=== PATIENT | female | born 1985 | race Caucasian/White ===

== ENCOUNTER 2018-09-06 18:35 | Emergency (ER) | payer MEDICAID, SELFPAY ==
[2018-09-06 18:38] VITALS: BP 151/79; PULSE 88; RESP 17; TEMP 36.8; O2SAT 100; BMI 27.3
--- NOTE | 2018-09-06 19:05 | RAD_ITS ---
STUDY: X-RAY - LEFT ANKLE REASON FOR EXAM: Female, 33 years old. Ankle pain with deformity after a fall TECHNIQUE: 2 view(s) of the ankle. COMPARISON: None. FINDINGS: There is anterior dislocation of the tibia in relation to the talus with lateral apical angulation. Longitudinal fracture of the posterior distal tibia with approximately 1.8 cm of displacement. Obliquely oriented fracture of the distal fibula with significant anterior apical angulation and more than one shaft's width displacement. There is also a transverse fracture of the medial malleolus. The visualized subtalar, talonavicular, calcaneocuboid and tarsal articulations are normal. There is diffuse soft tissue swelling. RAD/Ankle 2 Views IMPRESSION: 1. Tibiotalar dislocation with trimalleolar fracture. Electronically Signed: Narinder Benson MD at 19:20 EST , Service support ,
[2018-09-06 19:21] VITALS: BP 160/92; BP 175/87; PULSE 90; PULSE 95; RESP 15; O2SAT 100
[2018-09-06] MEDS: Propofol 200 MG/20 ML Vial IV BOLUS (19:23)
--- NOTE | 2018-09-06 19:30 | RAD_ITS ---
STUDY: X-RAY - LEFT ANKLE REASON FOR EXAM: Female, 33 years old. Status post reduction of ankle dislocation TECHNIQUE: 3 view(s) of the ankle. COMPARISON: None. FINDINGS: There is gross alignment of the tibiotalar articulation (improved since prior study). There is also improved alignment of trimalleolar fracture. Normal visualized talus and calcaneus. The visualized subtalar, talonavicular, calcaneocuboid and tarsal articulations are normal. The soft tissue structures are unremarkable. RAD/Ankle min 3 Views IMPRESSION: There is soft tissue swelling. Electronically Signed: Narinder Benson MD at 19:45 EST , Service support ,
[2018-09-06 19:40] VITALS: BP 138/87; O2SAT 96
[2018-09-06 19:48] VITALS: BP 175/89; PULSE 95; RESP 15; O2SAT 100
--- NOTE | 2018-09-06 20:20 | ED.VISSUMM ---
- ER Visit Summary Date of Service: 09/06/18 Chief Complaint: Left ankle injury History of Present Illness: The patient is a 33 F presenting with left ankle injury. Patient states she slipped on ice and fell injuring her left ankle. She did not hit her head or lose consciousness. She has history of right ankle fracture. She was unable to get up after the fall. Physical Examination: Vitals are stable. Patient is afebrile. Alert no acute distress. HEENT exam is unremarkable. Neck is nontender Lungs are clear and equal bilaterally. Heart is regular rate and rhythm. Extremities left ankle deformity, normal pulse, normal sensation. No tenting of skin Skin is warm and dry. No focal neurologic deficit. Remainder of exam is unremarkable. Emergency Department Course and Treatment: Left ankle x-ray shows trimalleolar fracture with tibiotalar dislocation. She is given morphine, Zofran IV. She was consented for procedural sedation. She is given propofol IV. Closed reduction was performed. Ortho-Glass splint was applied. Neurovascularly intact distally after splint placement. Repeat xray shows reduction. Discussed with Dr. Barba. She will follow-up in the office. She is advised nonweightbearing. She is given Percocet. Advised to return to ED for worsening complaints Disposition: Discharge home Impression: Left trimalleolar fracture/dislocation; closed reduction with sedation This note was generated with [employer] dictation software. It may contain incorrect words, spelling, and punctuation that were not noted in review of the chart prior to signing ED Disposition - Plan for ED Patient: Referrals: Afshin Samano MD [Primary Care Provider] -
--- NOTE | 2018-09-06 20:25 | ED.DEP ---
ED Disposition - Plan for ED Patient: Instructions: ED Fx Ankle General Prescriptions: Oxycodone HCl/Acetaminophen [Percocet 5/325] 1 tablet PO Q6H PRN PRN 3 Days #12 tablet PRN Reason: Pain Referrals: Afshin Samano MD [Primary Care Provider] - Jose L Barba MD [STAFF PHYSICIAN] -
--- NOTE | 2018-09-06 20:31 | ED.DEP ---
ED Disposition - Plan for ED Patient: Instructions: ED Fx Ankle General Prescriptions: Oxycodone HCl/Acetaminophen [Percocet 5/325] 1 tablet PO Q6H PRN PRN 3 Days #12 tablet PRN Reason: Pain Ondansetron [Zofran Odt] 4 mg PO Q8H PRN PRN #10 tablet PRN Reason: Nausea Referrals: Afshin Samano MD [Primary Care Provider] - Jose L Barba MD [STAFF PHYSICIAN] -
[2018-09-06 20:47] VITALS: BP 140/78; PULSE 68; RESP 15; O2SAT 100
[2018-09-06] MEDS: oxyCODONE 5 MG Tablet PO (20:48)
[2018-09-06 21:06] VITALS: BP 140/78; PULSE 68; RESP 15; O2SAT 100
== END 2018-09-06 21:07 | disposition home or self-care (01) ==
LOC: ED 19:53
PROVIDERS: Emergency Provider Emergency Medicine; Family Provider Family Medicine; PCP Family Medicine
DX: S82.852A Displaced trimalleolar fracture of left lower leg, initial encounter for closed fracture (principal); W00.0XXA Fall on same level due to ice and snow, initial encounter; Y93.01 Activity, walking, marching and hiking; Y92.89 Other specified places as the place of occurrence of the external cause; Y99.8 Other external cause status
CPT/HCPCS: 27818; 73600; 73610; 96374; 99285; J7030; A4216

== ENCOUNTER → 2018-09-10 10:52 | Outpatient (CLI) | payer MEDICAID, SELFPAY ==
[2018-09-06 18:38] VITALS: BMI 27.3
[2018-09-10 12:22] LABS: Absolute Lymphocyte Count 2.04 X10^3/ul (0.83-4.51); Basophil# 0.03 X10^3/uL; Basophil% 0.4 % (0-1); Eosinophil# 0.31 X10^3/uL; Eosinophils% 3.9 % (0-5); Hematocrit 40.7 % (37-47); Lymphocyte # 2.04 X10^3/ul (4.0); Lymphocyte % 25.5 % (19-41); Mean Corp Hgb Conc 31.9 g/gl (32-36); Mean Corpuscular Hgb 30.4 pg (27.0-32.0); Mean Corpuscular Volume 95.1 fL (81-99); Mean Platelet Vol. 9.5 fl (6.2-12.0); Monocyte# 0.65 X10^3/uL; Monocyte% 8.1 % (0-10); Neutrophil # 4.96 X10^3/uL (2.7-7.7); Platelet Count 340 K/mm3 (150-450); RBC Distribution Width CV 13.4 % (11.6-14.6); RBC Distribution Width SD 46.3 fl (35.1-43.9); Red Blood Count 4.28 M/mm3 (4.2-5.4)
[2018-09-10 12:28] LABS: POSITIVE COUNT NO; POSITIVE DIFFERENTIAL NO; POSITIVE MORPHOLOGY NO
[2018-09-10 13:14] LABS: Anion Gap 13 (5-15); BUN 8 mg/dL (7-18); BUN/Creat Ratio 11.3 RATIO (10-20); Calcium,Total 9.1 mg/dL (8.5-10.1); Chloride 106 mmol/L (98-107); Creatinine, Serum 0.71 mg/dL (0.55-1.02); EST Glomerular Filtration Rate 100 mL/min (>60); Est Glom Filt Rate - Afr Amer 121 mL/min (>60); Glucose 95 mg/dL (74-106); Potassium 4.3 mmol/L (3.5-5.1); Sodium Level 142 mmol/L (136-145)
--- NOTE | 2018-09-10 14:44 | CT_ITS ---
STUDY: CT LEFT ANKLE WITHOUT CONTRAST REASON FOR EXAM: Female, 33 years old. Left ankle fracture. RADIATION DOSAGE (If Supplied By Facility): CTDIvol = ( 7.68 ) mGy, DLP = ( 205.80 ) mGycm TECHNIQUE: Thin section transaxial imaging of the ankle was obtained, with sagittal and coronal reconstructed images. Individualized dose optimization techniques were used for this CT. COMPARISON: Radiographs 09/06/2018.. FINDINGS: Confirmation of extremely comminuted fractures of the distal fibula, lateral malleolus, medial malleolus, articular surface of the tibia, and the posterior tibial metaphysis. Ankle mortise is not significantly widened although there may be some widening between the distal fibula and tibia. Comminuted fractures through the medial malleolus are slightly displaced and there is approximately 3 mm of step-off along the lateral tibial articular surface. Fractures of the distal fibula and lateral malleolus are mildly displaced posteriorly. No angulation. Fracture of the posterior lip of the distal tibial metaphysis is slightly displaced cephalad with 4 mm of step-off of the articular surface. Normal position of the talus. No fractures of the visualized bones of the foot. CT/Extremity Lower without Contra IMPRESSION: Confirmation of numerous comminuted fractures of the distal fibula, posterior and lateral tibia, with possibly some mild widening of the interosseous space. Mild step-offs involving the tibial articular surface as described. No dislocation. Electronically Signed: Joel De Anda MD at 14:25 EST , Service support ,
== END ==
PROVIDERS: Family Provider Family Medicine; PCP Family Medicine; Visit Provider Podiatrist Foot & Ankle Surgery
DX: Z01.818 Encounter for other preprocedural examination (principal); S93.05XA Dislocation of left ankle joint, initial encounter; S82.852A Displaced trimalleolar fracture of left lower leg, initial encounter for closed fracture
CPT/HCPCS: 36415; 73700; 80048; 85025

== ENCOUNTER 2018-09-19 20:18 | Observation (INO) | payer MEDICAID, SELFPAY ==
[2018-09-19] VITALS (9 sets, daily range): BP systolic 89–125; BP diastolic 58–74; PULSE 79–94; RESP 16–20; TEMP 36.2–37.4; O2SAT 95–100; BMI 27.0; BMI 28.3
[2018-09-19 07:27] LABS: Internal QC Validated? YES +Cl - CLEAR BKGD; Pregnancy, Urine Negative Negative
[2018-09-19] MEDS: Cefazolin 2 GM in 0.9% Normal Saline 100 ML IV (09:03)
--- NOTE | 2018-09-19 09:16 | RAD_ITS ---
STUDY: X-RAY - LEFT ANKLE REASON FOR EXAM: Female, 33 years old. Trimalleolar fracture. TECHNIQUE: 23 intraoperative view(s) of the ankle. COMPARISON: Ankle, September 06, 2018. CT of the ankle, September 10, 2018. FINDINGS: The images demonstrate initial fixation of fracture fragments with transfixing wires. There is then placement of cortical screws through the distal tibia to fixate the posterior malleolar fracture. A plate and screws placed along the lateral aspect of the distal fibula. Second plate and screws is in place along the medial tibia. A wire is in place through the medial malleolar fracture are. Please refer to the operative report for further details. RAD/Ankle min 3 Views IMPRESSION: Fixation of a trimalleolar fracture in the OR. Electronically Signed: Juan Antonio Edwards DO at 16:14 EST Tel [phone], Service support ,
--- NOTE | 2018-09-19 17:32 | PCM.DC.ORTHO ---
Discharge Activity: May Not Drive, May not drive while taking narcotic pain medications., May Not Shower, Use Walker, Use Crutches Ice area for (Minutes): 20 - Apply behind left knee 20 minutes of each hour while awake Weight Bearing Status: Weight bearing as tolerated Keep extremity elevated above heart level: Operative Extremity Call your doctor if your incision/area has: Sudden Increased Bleeding Call your doctor if you observe: Fever of 101 or Higher, Inability to urinate, Shortness of breath, Dizziness, Chest pain, Increased palpitations (irregular heartbeat), Calf discomfort, Uncontrolled pain Cleanse incision/area with: Keep Dressing Clean & Dry Allergies/Adverse Reactions: Allergies No Known Drug Allergies Allergy (Verified 09/13/18 08:33) Other Medications to take at Discharge Acetaminophen [Tylenol] 500 - 1,000 mg PO Q6H PRN PRN 09/13/18 Oxycodone [Oxyir] 5 mg PO Q6H PRN PRN 7 Days #30 tab 09/19/18 The following prescriptions were given: Oxycodone [Oxyir] 5 mg PO Q6H PRN PRN 7 Days #30 tab PRN Reason: Pain Primary Care Physician: Afshin Samano MD [Primary Care Provider] - Test Results: Test results from this visit will be discussed in further detail at your follow-up appointment, if applicable. Please Follow Up With: Hina Soriano DPM - Please follow up at your previously scheduled post operative appointment next week. Proposed Discharge Date: 09/19/18
--- NOTE | 2018-09-19 17:35 | DCINST_ITS ---
Discharge Activity: May Not Drive, May not drive while taking narcotic pain medications., May Not Shower, Use Walker, Use Crutches Ice area for (Minutes): 20 - Apply behind left knee 20 minutes of each hour while awake Weight Bearing Status: Weight bearing as tolerated Keep extremity elevated above heart level: Operative Extremity Call your doctor if your incision/area has: Sudden Increased Bleeding Call your doctor if you observe: Fever of 101 or Higher, Inability to urinate, Shortness of breath, Dizziness, Chest pain, Increased palpitations (irregular heartbeat), Calf discomfort, Uncontrolled pain Cleanse incision/area with: Keep Dressing Clean & Dry Allergies/Adverse Reactions: Allergies No Known Drug Allergies Allergy (Verified 09/13/18 08:33) Other Medications to take at Discharge Acetaminophen [Tylenol] 500 - 1,000 mg PO Q6H PRN PRN 09/13/18 Oxycodone [Oxyir] 5 mg PO Q6H PRN PRN 7 Days #30 tab 09/19/18 The following prescriptions were given: Oxycodone [Oxyir] 5 mg PO Q6H PRN PRN 7 Days #30 tab PRN Reason: Pain Primary Care Physician: Afshin Samano MD [Primary Care Provider] - Test Results: Test results from this visit will be discussed in further detail at your follow- up appointment, if applicable. Please Follow Up With: Hina Soriano DPM - Please follow up at your previously scheduled post operative appointment next week. Proposed Discharge Date: 09/19/18
--- NOTE | 2018-09-19 17:39 | OP.PCM_ITS ---
Report of Operation Date of Procedure: 09/19/18 Pre-Operative Diagnosis: L posterior variant pilon fracture, syndesmotic d isruption Post-Operative Diagnosis: same Surgery/Procedure Performed:: L distal tibia and fibula ORIF, syndesmotic fixation, intraoperative fluoroscopy stress views Description of Surgical Findings:: see dictation senior reactor operator: Oswaldo Gaytan Type of Anesthesia:: General/Regional Estimated Blood Loss (mL): 500 mL Description of Procedure: Indications: Pt is a 33 yo F who presented to my clinic after a fall on ice with a L ankle fracture-dislocation. On 09/06/2018 patient fell on ice causing a severe ankle injury and dislocation. She was evaluated at the [facility] ER where a closed reduction of her left ankle was performed and she was placed into a posterior splint. Pt was seen in my clinic for follow up where a CT scan was ordered to better evaluate her fractures and dislocations. A CT scan of the LLE on 09/10/2018, revealed extremely comminuted fractures of the distal fibula, lateral malleolus, medial malleolus, articular surface of the tibia and posterior tibial metaphysis with a questionable Sheperd's fracture of the talus. Pt presents today for surgical intervention. All risks, complications, and alternatives were discussed with the patient, and the patient signed an informed consent. No guarantees were given. Procedure: On 09/19/2018, Velia Levi, was visually and verbally identified in the preoperative holding area. The consent form was again reviewed with the patient, as were all risks, complications, and alternatives and the patient wished to proceed with the proposed surgery. The left ankle was marked as the correct operative extremity. The patient was brought to the operating room and placed on the operating room table. A lead apron was placed circumferentially to protect the patient. Patient was placed in a well padded lazy lateral position. After induction by anesthesia, a surgical time out was performed and all present were in agreement. a pneumatic thigh tourniquet was then placed. At this time the left lower extremity was prepped and draped in the usual sterile fashion. after exsanguination with an esmarch the tourniquet was inflated to 300 mmHg. At this time attention was directed to the posterior lateral ankle. The Achilles tendon, peroneal tendons and fibula were defined. Using a #15 blade a linear incision was made midway between the Achilles and peroneal tendons.The incision was bluntly carried deep through the subcutaneous tissues with careful attention paid to all bleeders, which were clamped and tied or bovied as necessary. All vital neurovascular structures were retracted. The sural nerve was identified and a vessel loupe was placed around it and secured with a hemostat. Dissection was carried deep through the fascia with care taken to the retract the FHL medially to allow for visualization of the posterior ankle joint capsule. An incision was made in the joint capsule and the fracture of the posterior tibia was identified. As the fracture had significant articular involvement and some displacement I felt it was necessary to fixate this fracture. Attention was then turned to the fibula. The peroneal tendons were retracted medially to allow for better visualization of the fibula and its fracture fragments. The fibula was noted to be fractured in multiple places with comminution. The fibula was shortened and the fragments were malpositioned. Attention was then returned to the posterior tibia, the fracture was debrided of all impinging soft tissue and hematoma using a #15 blade, ronguer and osteotome. A K wire was placed temporarily to act as a joystick to aide in reduction of the fracture. Under intraoperative fluoroscopy and direct visualization the posterior tibia fracture was reduced with improved alignment of the articular surface noted. This reduction was held by advancing the k wire. At this time 2 guidewires were placed from posterior lateral to anterior medial under intraoperative fluoroscopy. Two cannulated screws were then placed per AO technique. Good fixation was noted. Screw placement and length was confirmed on intraoperative fluoroscopy. The guidewires were removed. Attention was then returned to the fractured fibula. Reduction of the fracture was attempted through distraction and manipulation however I did not feel the fibula was out to length enough. I then decided to utilize a plate and the push pull technique to better reduce the fractures. After determining the length of the plate, I secured it initially with two temporary k wires. I then placed a bicortical screw proximal to the plate in the fibula. This allowed me to use a toothed lamina in flight technician between the 3.5 cortical screw and the plate and leverage the plate/distal fibula. However, I did not feel the plate was maintaining position with the temporary fixation. I removed the temporary wires and placed two locking screws in the most distal fibular fragment. I then repeated the expansion of the lamina in flight technician between the plate the 3.5 mm screw. This allowed for improved length. A bone reduction clamp was also used to aid in reduction of the multiple fracture fragments. When I was satisfied with my fibula length and rotation on intraoperative fluoroscopy, I placed a nonlocking screw into the plate of the proximal fibula fragment. This maintained my fibula. I then placed two more nonlocking screws proximal to the fracture lines, and locking screws in the distal fibula. I did replace one of the proximal nonlocking screws for a shorter one as it was too long on fluoroscopy. I also used a nonlocking screw in the distal plate to help conform the plate to the bone and then exchanged it for a locking screw. The incision was flushed with copious amounts of normal sterile saline. The patient was then airplaned from the lazy lateral position to exposed the medial ankle. Attention was then turned to the medial malleolar fractures. Using a fresh #15 blade a curvilinear incision was made over the medial malleolous. The incision was bluntly carried deep through the subcutaneous tissues with careful attention paid to all bleeders, which were clamped and tied or bovied as necessary. All vital neurovascular structures were retracted. A vessel loupe was placed around the saphenous vein and secured with a hemostat. Dissection was carried deep. The deltoids were noted to be attenuated. Multiple fracture lines with comminution were identified in the medial malleolus. In addition to an oblique fracture there was a complete transverse avulsion of the anterior colliculis. This was reduced secured with a k wire. I then positioned a Y plate over the oblique fracture. Plate length and positioning was confirmed on intraoperative fluoroscopy. Locking screws were then placed. Good reduction of the fracture was noted, however the bone of the medial malleolus was noted to be soft and with many tiny comminuted pieces. Under intraoperative fluoroscopy, a cotton hook and external rotation stress views were performed. Increased syndesmotic gapping was noted. A malleolar bone reduction clamp was then placed. A 3.5 transyndesmotic screw was then drilled for through the plate and parallel to the tibiotalar joint. When the trans- syndesmotic screw was placed it was noted that it dislodged several of the medial malleolar fragments. While the syndesmotic gapping had improved. The transyndesmotic screw was then removed. Attention turned to the medial malleolus. An attempt was made to secure the malleolar pieces with a small cannulated screw, however this did not have good fixation and was removed. Following the same trajectory a guidewire was placed in attempt to place a long 4.0 cannulated screw with a washer that would grab the lateral cortex of the tibia. Guidewire placement and measuring was done under intraoperative fluoroscopy, however, when the screw was placed it was palpable in the anterior tibia and a shorter one was placed. This again was long. At this the time bone was noted to be too comminuted to take another screw. I then focused on improving the reduction of the anterior collolicus of the medial malleolus so that it was not in the medial gutter. This was fixated with two k wires which were cut and bent. A tamp and mallet was used to ensure the k wires were flush. The incisions were both flushed with normal sterile saline. A shorter transyndesmotic screw was then placed under manual compression of the distal tibiofibular joint to aid in reduction of the syndesmosis. I then packed each fracture line of the medial and lateral ankle with [place] Vitoss. I did not pack the posterior fracture as I felt it had adequate fixation and reduction with minimal comminution of the bone. Closure was then initiated. 2.0 vicryl was used for capsule and deep tissues, 3.0 vicryl was used for subcutaneous tissue and 3.0 prolene was used for skin. Total tourniquet time was 249, tourniquet was deflated after the first 124 minutes and then reinflated after a 30 minute period for an additional 125 minutes. minutes with immediate capillary refill noted to all digits upon deflation. Intra operative fluoroscopy was utilized throughout the case, > 1 hour, to aid in visualization and confirmation of fracture reduction and screw and plate fixations as well as k wires. Interpretation of the images was vital to my decision making process. Multiple factors added to the complexity and duration (>7 hours) of the case including numerous fractures with multiple fragments and comminution, soft bone, and fracture pattern added to the length of the case. The patient tolerated the procedure and anesthesia well. The patient was then transported to the postanesthesia care unit by a member of the anesthesia team and myself with all vital signs stable and neurovascular status of the left lower extremity equal to pre-operative levels. She will receive a post operative LLE block by anesthesia. At the end of the case all sponge, needle and instrument counts were found to be correct. Grafts/Implants Used: Nancy plate and screws, [place] Vitoss, k wire - Complications none - Admit VTE Documentation VTE Present on Admission: No VTE Mechan Device Prophylaxis: SCD's, Knee High CLARK Hose VTE Pharm Prophylaxis ordered?: Yes
--- NOTE | 2018-09-19 18:20 | RAD_ITS ---
STUDY: X-RAY - LEFT ANKLE REASON FOR EXAM: Female, 33 years old. Postop. TECHNIQUE: 3 view(s) of the ankle. COMPARISON: Intraoperative images, September 19, 2018. CT of the ankle, September 10, 2018. FINDINGS: There is a plate and screws along the medial aspect of the distal tibia. There is a wire and metallic brads transfixing the medial malleolar fracture which is normal alignment. There are 2 screws running sagittally through the distal tibia with normal positioning of the posterior malleolar fracture. There is a metallic plate along the lateral aspect of the fibula with normal alignment of the fibular fracture. Normal tibiotalar articulation and ankle mortise. Normal visualized talus and calcaneus. The visualized subtalar, talonavicular, calcaneocuboid and tarsal articulations are normal. Diffuse soft tissue edema. There is a semiopaque splint along the posterior aspect of the leg and plantar surface of the foot. RAD/Ankle min 3 Views IMPRESSION: Status post internal fixation of a trimalleolar fracture. Electronically Signed: Juan Antonio Edwards DO at 19:14 EST Tel [phone], Service support ,
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
[2018-09-19] MEDS: oxyCODONE 5 MG Tablet PO (21:35)
[2018-09-19] MEDS: Senna/Docusate Sodium 1 Tablet PO (23:05)
[2018-09-20] MEDS: Morphine 2 MG/ML Syringe IV ×4 (00:47→16:45)
[2018-09-20 00:56] VITALS: BP 120/67; PULSE 84; RESP 16; TEMP 36.9; O2SAT 97
[2018-09-20] MEDS: oxyCODONE 5 MG Tablet PO ×3 (03:10→10:49)
[2018-09-20] MEDS: Acetaminophen 325 MG Tablet 650 MG PO (03:11)
[2018-09-20] MEDS: Ketorolac 15 MG/ML Vial IV ×3 (04:40→19:38)
[2018-09-20 06:10] LABS: Absolute Neutrophil Count 6.5 X10^3/uL (2.0-7.7); Basophil# 0.01 X10^3/uL; Basophil% 0.1 % (0-1); Hemoglobin 10.7 g/dl (12.0-15.0); Lymphocyte % 24.2 % (19-41); Mean Corp Hgb Conc 32.4 g/gl (32-36); Mean Corpuscular Hgb 30.7 pg (27.0-32.0); Mean Corpuscular Volume 94.8 fL (81-99); Mean Platelet Vol. 9.1 fl (6.2-12.0); Monocyte# 1.34 X10^3/uL; Neutrophil # 6.45 X10^3/uL (2.7-7.7); Neutrophil % 62.4 % (47-70); Platelet Count 344 K/mm3 (150-450); RBC Distribution Width CV 12.8 % (11.6-14.6); RBC Distribution Width SD 42.7 fl (35.1-43.9); Red Blood Count 3.48 M/mm3 (4.2-5.4); White Blood Count 10.3 K/mm3 (4.4-11.0)
[2018-09-20 06:15] LABS: Anion Gap 11 (5-15); BUN 8 mg/dL (7-18); BUN/Creat Ratio 10.3 RATIO (10-20); Calcium,Total 8.1 mg/dL (8.5-10.1); Chloride 108 mmol/L (98-107); Creatinine, Serum 0.77 mg/dL (0.55-1.02); EST Glomerular Filtration Rate 90 mL/min (>60); Est Glom Filt Rate - Afr Amer 109 mL/min (>60); Estimated Creatinine Clearance 84.36 ml/min; Glucose 109 mg/dL (74-106); Potassium 3.2 mmol/L (3.5-5.1); Sodium Level 142 mmol/L (136-145)
[2018-09-20 06:16] LABS: POSITIVE COUNT NO; POSITIVE DIFFERENTIAL NO; POSITIVE MORPHOLOGY NO
[2018-09-20 06:56] VITALS: BP 140/83; PULSE 87; RESP 16; TEMP 36.7; O2SAT 99
[2018-09-20 07:40] VITALS: O2SAT 96
[2018-09-20 08:07] VITALS: BP 129/77; PULSE 88; RESP 18; TEMP 36.9; O2SAT 98
[2018-09-20] MEDS: Aspirin 325 MG Tablet PO (08:19)
[2018-09-20] MEDS: 0.9% NaCl Peripheral Flush Adult/Peds IV ×3 (10:48→14:37)
--- NOTE | 2018-09-20 11:21 | NURSING ---
SPOKE WITH DR PACHECO REGARDING UNCONTROLLED PAIN. NEW ORDERS RECEIVED.
[2018-09-20 14:07] VITALS: BP 124/79; PULSE 97; RESP 18; TEMP 36.8; O2SAT 100
[2018-09-20] MEDS: Acetaminophen 500 MG Tablet 1000 MG PO ×2 (14:08→21:21)
--- NOTE | 2018-09-20 15:29 | PCM.PROGNOTE ---
Subjective: Chief complaint: Follow-up after admission for acute traumatic left trimalleolar ankle fracture due to mechanical fall, underwent open reduction and internal fixation. Patient seen and examined. No acute events overnight. Her pain is not well controlled, still complaining of pain start of OxyIR. Her vitals are stable. She denied any other significant complaints. - Physical Exam General: Alert, Oriented x3, Cooperative HEENT: PERRLA, EOMI, Normocephalic Oral: Moist Mucosa, No Gingival or Mucosal Lesions/ Ulcerations Neck: Supple, No JVD, Negative Carotid Bruits, Trachea Midline, Thyroid Normal Size and Texture Lungs: Clear to auscultation, Normal air movement, No rhonchi, No wheeze, No rales Cardiovascular: Regular rate, Regular Rhythm, Normal S1, Normal S2, PMI Normal Abdomen: Bowel Sounds Present, Soft, Non Tender, Non-Distended, No Hepato-splenomegaly Extremities: No clubbing, No cyanosis, No edema Skin: No rashes, No breakdown Lymphatic: No Cervical, Supraclavicular, or Inguinal Adenopathy Neurological: Cranial nerves II-XII grossly intact, Motor Exam 5/5 strength throughout Psych/Mental Status: Normal Affect, Appropriate Vital Signs Temp Pulse Resp BP Pulse Ox 98.2 F 97 18 124/79 H 100 09/20/18 14:07 09/20/18 14:07 09/20/18 14:07 09/20/18 14:07 09/20/18 14:07 Oxygen Delivery Method Room Air Weight: 159 lb 13.362 oz Body Mass Index (BMI) 28.3 Intake and Output for Last 24 Hours 09/18/18 09/19/18 09/20/18 23:59 23:59 23:59 Intake Total 2800 / 2800 2282 / 2282 Output Total 600 / 600 1850 / 1850 Balance 2200 / 2200 432 / 432 Laboratory Tests Past 24 Hrs 09/20/18 09/20/18 05:40 05:40 WBC 10.3 RBC 3.48 L Hgb 10.7 L Hct 33.0 L MCV 94.8 MCH 30.7 MCHC 32.4 RDW 12.8 RDW Differential 42.7 Plt Count 344 MPV 9.1 Immature Gran % (Auto) 0.300 Neut % (Auto) 62.4 Lymph % (Auto) 24.2 [place] % (Auto) 13.0 H Eos % (Auto) 0.0 Baso % (Auto) 0.1 Absolute Neuts (auto) 6.5 Absolute Lymphs (auto) 2.50 Total Counted Not Reportable Sodium 142 Potassium 3.2 L Chloride 108 H Carbon Dioxide 23.0 Anion Gap 11 BUN 8 Creatinine 0.77 Estim Creat Clear Calc 84.36 Est GFR (MDRD) Af Amer 109 Est GFR (MDRD) Non-Af 90 BUN/Creatinine Ratio 10.3 Glucose 109 H Calcium 8.1 L Clinical Impression(s) from Imaging Studies Ankle X-Ray 09/19/18 09:16 IMPRESSION: Fixation of a trimalleolar fracture in the OR. Electronically Signed: Juan Antonio Edwards DO at 16:14 EST Tel [phone], Service support , Ankle X-Ray 09/19/18 18:20 IMPRESSION: Status post internal fixation of a trimalleolar fracture. Electronically Signed: Juan Antonio Edwards DO at 19:14 EST Tel [phone], Service support , Medical Necessity - Tobacco Use Smoking Status: Never smoker Assessment/Plan All Active Problems (Last Reviewed 09/20/18 @ 07:59 by Wai Navarro MD) Trimalleolar fracture of left ankle (Acute) Dislocation of ankle, left, closed (Acute) This is a 33 years old female patient admitted for elective repair of acute traumatic left trimalleolar ankle fracture due to mechanical fall on September 06, 2018 and she underwent open reduction and internal fixation and was admitted for pain control. #1 acute traumatic left trimalleolar ankle fracture: Status post open reduction and internal fixation, postoperative day 1. She is on OxyIR as needed for pain as well as atenolol. Her vital signs are stable. Routine blood work was remarkable for anemia which is chronic and potassium of 3.2, otherwise normal. Her pain is not well controlled. Podiatry medicine on the case, awaiting their recommendations. Patient may need more pain medication, I would leave it to the surgeon to take care of it. #2 mild hypokalemia: We will give on K Dur 60 mg x1. #3 DVT prophylaxis: SCDs, full dose aspirin. This note was generated with [employer] software. It may contain incorrect words, spelling, and punctuation that were not noted in checking the note before signing. Code Visit OBSV E&M: 51512 Subsequent observation care L2
--- NOTE | 2018-09-20 15:30 | PCM.DC.SUM ---
Discharge Date and Diagnosis - Problem List Patient Problems: Active and Suspected Problems (Last Reviewed 09/20/18 @ 07:59 by Wai Navarro MD) Trimalleolar fracture of left ankle (Acute) Date of Admission: 09/19/18 Date of Discharge: 09/20/18 - Primary Discharge Diagnosis Active and Suspected Problems (Last Reviewed 09/20/18 @ 07:59 by Wai Navarro MD) Trimalleolar fracture of left ankle (Acute) Hospital Course and Treatment Summary of Care Provided: The patient is a 33 year old F [] Patient Problems: Active and Suspected Problems (Last Reviewed 09/20/18 @ 07:59 by Wai Navarro MD) Trimalleolar fracture of left ankle (Acute) - Physical Exam Vital Signs Temp Pulse Resp BP Pulse Ox 98.2 F 97 18 124/79 H 100 09/20/18 14:07 09/20/18 14:07 09/20/18 14:07 09/20/18 14:07 09/20/18 14:07 Oxygen Delivery Method Room Air Weight: 159 lb 13.362 oz Body Mass Index (BMI) 28.3 Intake and Output for Last 24 Hours 09/18/18 09/19/18 09/20/18 23:59 23:59 23:59 Intake Total 2800 / 2800 2282 / 2282 Output Total 600 / 600 1850 / 1850 Balance 2200 / 2200 432 / 432 Laboratory Tests Past 24 Hrs 09/20/18 09/20/18 05:40 05:40 WBC 10.3 RBC 3.48 L Hgb 10.7 L Hct 33.0 L MCV 94.8 MCH 30.7 MCHC 32.4 RDW 12.8 RDW Differential 42.7 Plt Count 344 MPV 9.1 Immature Gran % (Auto) 0.300 Neut % (Auto) 62.4 Lymph % (Auto) 24.2 [place] % (Auto) 13.0 H Eos % (Auto) 0.0 Baso % (Auto) 0.1 Absolute Neuts (auto) 6.5 Absolute Lymphs (auto) 2.50 Total Counted Not Reportable Sodium 142 Potassium 3.2 L Chloride 108 H Carbon Dioxide 23.0 Anion Gap 11 BUN 8 Creatinine 0.77 Estim Creat Clear Calc 84.36 Est GFR (MDRD) Af Amer 109 Est GFR (MDRD) Non-Af 90 BUN/Creatinine Ratio 10.3 Glucose 109 H Calcium 8.1 L Discharge Activity: May Not Drive, May not drive while taking narcotic pain medications., May Not Shower, Use Walker, Use Crutches Ice area for (Minutes): 20 - Apply behind left knee 20 minutes of each hour while awake Weight Bearing Status: Weight bearing as tolerated Keep extremity elevated above heart level: Operative Extremity Call your doctor if your incision/area has: Sudden Increased Bleeding Call your doctor if you observe: Fever of 101 or Higher, Inability to urinate, Shortness of breath, Dizziness, Chest pain, Increased palpitations (irregular heartbeat), Calf discomfort, Uncontrolled pain Cleanse incision/area with: Keep Dressing Clean & Dry Home Medications: Medications to take at Discharge Acetaminophen [Tylenol] 500 - 1,000 mg PO Q6H PRN PRN 09/13/18 Oxycodone [Oxyir] 5 mg PO Q6H PRN PRN 7 Days #30 tab 09/19/18 Following Prescrptions Were Given to Patient: Oxycodone [Oxyir] 5 mg PO Q6H PRN PRN 7 Days #30 tab PRN Reason: Pain Primary Care Physician: Afshin Samano MD [Primary Care Provider] - Please Follow Up With: Hina Soriano DPM - Please follow up at your previously scheduled post operative appointment next week. Medical Necessity - Tobacco Use Smoking Status: Never smoker Code Visit Inpatient E&M: 42401 Disch Hosp
--- NOTE | 2018-09-20 15:33 | DCINST_ITS ---
- Discharge Diagnoses Current Active Problems: Current Active and Chronic Problems (Last Reviewed 09/20/18 @ 07:59 by Wai Navarro MD) Trimalleolar fracture of left ankle (Acute) You will use the following diet at home:: Regular Your food should be the consistency of: Regular Discharge Activity: May Not Drive, May not drive while taking narcotic pain medications., May Not Shower, Use Walker, Use Crutches Ice area for (Minutes): 20 - Apply behind left knee 20 minutes of each hour while awake Weight Bearing Status: Weight bearing as tolerated Keep extremity elevated above heart level: Operative Extremity Call your doctor if your incision/area has: Sudden Increased Bleeding Call your doctor if you observe: Fever of 101 or Higher, Inability to urinate, Shortness of breath, Dizziness, Chest pain, Increased palpitations (irregular heartbeat), Calf discomfort, Uncontrolled pain Cleanse incision/area with: Keep Dressing Clean & Dry Allergies/Adverse Reactions: Allergies No Known Drug Allergies Allergy (Verified 09/13/18 08:33) Other Medications to take at Discharge Acetaminophen [Tylenol] 500 - 1,000 mg PO Q6H PRN PRN 09/13/18 Oxycodone [Oxyir] 5 mg PO Q6H PRN PRN 7 Days #30 tab 09/19/18 The following prescriptions were given: Oxycodone [Oxyir] 5 mg PO Q6H PRN PRN 7 Days #30 tab PRN Reason: Pain Primary Care Physician: Afshin Samano MD [Primary Care Provider] - Test Results: Test results from this visit will be discussed in further detail at your follow- up appointment, if applicable. Please Follow Up With: Hina Soriano DPM - Please follow up at your previously scheduled post operative appointment next week. Proposed Discharge Date: 09/19/18
[2018-09-20] MEDS: HYDROmorphone 0.5 MG/0.5 ML SYRINGE IV (18:17)
--- NOTE | 2018-09-20 18:17 | PCM.CONS.GEN ---
Problem List (1) Dislocation of ankle, left, closed Status: Acute Qualifiers: Encounter type: subsequent encounter Qualified Code(s): S93.05XD - Dislocation of left ankle joint, subsequent encounter (2) Tibiofibular ligament sprain, distal Status: Suspected Qualifiers: Encounter type: subsequent encounter Laterality: left Qualified Code(s): S93.432D - Sprain of tibiofibular ligament of left ankle, subsequent encounter (3) Other acute postprocedural pain Status: Acute Reason for Consult Date of Consultation: 09/20/18 Reason for Consultation: S/P ORIF L posterior varient pilon fx w/ trans-syndesmotic fixation History of Present Illness: The patient is a 33 year old F s/p S/P ORIF L posterior variant pilon fx w/ trans-syndesmotic fixation, POD #1. PT was admitted for post op pain management after a 7 hour procedure yesterday. Pt is resting in bed with LLE elevated, ice behind knee and mother is in the room. She states that her pain has improved since I spoke with the floor nurse in late morning regarding pain management. However, her pain is still significant. Denies f/c/n/v/cp/sob/ calf pain. [] Past Medical History Medical History: Medical History (Last Reviewed 09/20/18 @ 07:59 by Wai Navarro MD) Environmental allergies Z91.09 Allergies No Known Drug Allergies Allergy (Verified 09/13/18 08:33) Other Home Medications: Ambulatory Orders Medication Instructions Recorded Acetaminophen [Tylenol] 500 - 1,000 mg PO Q6H PRN PRN 09/13/18 Oxycodone [Oxyir] 5 mg PO Q6H PRN PRN 7 Days #30 tab 09/19/18 Surgical History: Surgical History (Last Reviewed 09/20/18 @ 07:59 by Wai Navarro MD) History of arthroplasty of right ankle Z98.890 Surgical History: - - Left ankle surgery on 09/19/2018 Psychiatric History: No pertinent psych hx Lives: With Family Smoking Status: Never smoker Alcohol: None - *Family History Maternal Family History: Family History (Last Reviewed 09/20/18 @ 07:59 by Wai Navarro MD) Other Breast cancer Cancer Colon cancer Heart disease Hypertension Melanoma Severe allergic reaction Patient Problems: Active and Suspected Problems (Last Reviewed 09/20/18 @ 07:59 by Wai Navarro MD) Trimalleolar fracture of left ankle (Acute) Dislocation of ankle, left, closed (Acute) Tibiofibular ligament sprain, distal (Suspected) Other acute postprocedural pain (Acute) Subjective: Pt is no longer tearful with pain, but grimaces with examination. Objective: LLE: Vasc: crf < 3 seconds to digits, warm to touch, calf is nontender with compression Neuro: light touch sensation diminished, likely 2/2 block Derm: surgical dressings c/d/i, no strikethrough noted MS: well padded posterior splint intact - Physical Exam General: Alert, Cooperative Vital Signs Temp Pulse Resp BP Pulse Ox 98.2 F 97 18 124/79 H 100 09/20/18 14:07 09/20/18 14:07 09/20/18 14:07 09/20/18 14:07 09/20/18 14:07 Oxygen Delivery Method Room Air Weight: 159 lb 13.362 oz Body Mass Index (BMI) 28.3 Intake and Output for Last 24 Hours 09/18/18 09/19/18 09/20/18 23:59 23:59 23:59 Intake Total 2800 / 2800 2282 / 2282 Output Total 600 / 600 1850 / 1850 Balance 2200 / 2200 432 / 432 Laboratory Tests Past 24 Hrs 09/20/18 09/20/18 05:40 05:40 WBC 10.3 RBC 3.48 L Hgb 10.7 L Hct 33.0 L MCV 94.8 MCH 30.7 MCHC 32.4 RDW 12.8 RDW Differential 42.7 Plt Count 344 MPV 9.1 Immature Gran % (Auto) 0.300 Neut % (Auto) 62.4 Lymph % (Auto) 24.2 [place] % (Auto) 13.0 H Eos % (Auto) 0.0 Baso % (Auto) 0.1 Absolute Neuts (auto) 6.5 Absolute Lymphs (auto) 2.50 Total Counted Not Reportable Sodium 142 Potassium 3.2 L Chloride 108 H Carbon Dioxide 23.0 Anion Gap 11 BUN 8 Creatinine 0.77 Estim Creat Clear Calc 84.36 Est GFR (MDRD) Af Amer 109 Est GFR (MDRD) Non-Af 90 BUN/Creatinine Ratio 10.3 Glucose 109 H Calcium 8.1 L Assessment/Plan All Active Problems (Last Reviewed 09/20/18 @ 07:59 by Wai Navarro MD) Trimalleolar fracture of left ankle (Acute) Dislocation of ankle, left, closed (Acute) Other acute postprocedural pain (Acute) Radiculopathy of lumbosacral region (Acute) Segmental and somatic dysfunction of pelvic region (Acute) Segmental and somatic dysfunction of thoracic region (Acute) Segmental and somatic dysfunction of lumbar region (Acute) Pt is a 33 y/o F S/P ORIF L posterior variant pilon fx w/ trans-syndesmotic fixation, POD #1 -Pt evaluated at bedside -labs, studies and notes reviewed -Continue strict NWB LLE, ice therapy-20 minutes of each hour while awake, apply ice behind left knee -ODILIA bandage loosened to the tolerance of the patient. -LLE elevated when in bed or recliner, offload/suspend heel as tolerated -Vitamin D level ordered, please obtain prior to discharge -Multimodal pain medication should be staggered. I discontinued the oxycodone and iv morphine as it was less helpful. Dilaudid PO and IV orders placed, will adjust as needed. Continue with 1000mg tylenol q8h. Continue with toradol 15mg iv q6h, while ordered as prn, please remind patient it is available and offers a different pain management pathway. Gabapentin 300 mg BID to start tonight, also addresses pain. Will add Vitamin C 500mg qd. -Bowel regimen of senna ordered, t/c colace if needed. -Incentive spirometry, patient should be sent home with device and encouraged to use 10 times per hour while awake, or if watching tv during each commercial break. -dvt prophylaxis ordered, if here for > 48 hours will change to SQH or lovenox. -Pt will follow up with me as an outpatient. She does have a prescription for oxycodone, however, as this did not seem to work well for her, she may need a new prescription pending the effectiveness of the po dilaudid. -Please call with questions or concerns. t/c a bedside CPN block if pain persists at high level with new pain management orders.
[2018-09-20] MEDS: Gabapentin 100 MG Capsule 300 MG PO (19:38)
[2018-09-20 21:20] VITALS: BP 117/70; PULSE 74; RESP 16; TEMP 36.9; O2SAT 98
[2018-09-20] MEDS: Senna/Docusate Sodium 1 Tablet PO (21:21)
[2018-09-20] MEDS: HYDROmorphone 2 MG TABLET PO (21:21)
[2018-09-20] MEDS: Ascorbic Acid 500 MG Tablet PO (21:24)
[2018-09-21] MEDS: HYDROmorphone 2 MG TABLET PO ×2 (03:12→08:44)
[2018-09-21 03:15] VITALS: BP 115/73; PULSE 97; RESP 16; TEMP 36.8; O2SAT 73
[2018-09-21] MEDS: Acetaminophen 500 MG Tablet 1000 MG PO (06:00)
[2018-09-21 07:40] VITALS: O2SAT 99
[2018-09-21] MEDS: Aspirin 325 MG Tablet PO (08:30)
[2018-09-21] MEDS: Ascorbic Acid 500 MG Tablet PO (08:30)
[2018-09-21] MEDS: Gabapentin 100 MG Capsule 300 MG PO (08:30)
[2018-09-21] MEDS: Senna/Docusate Sodium 1 Tablet PO (08:31)
[2018-09-21 08:35] VITALS: BP 133/70; PULSE 80; RESP 20; TEMP 36.6; O2SAT 99
[2018-09-21 10:32] VITALS: BP 126/70; PULSE 86; RESP 20; TEMP 36.6; O2SAT 99
--- NOTE | 2018-09-21 12:35 | PCM.DC.SUM ---
Discharge Date and Diagnosis Date of Admission: 09/19/18 Date of Discharge: 09/21/18 - Primary Discharge Diagnosis #1 intractable left foot pain after left foot surgery. #2 acute traumatic left trimalleolar ankle fracture status post open reduction and internal fixation. Hospital Course and Treatment Imaging Results: Clinical Impression(s) from Imaging Studies Ankle X-Ray 09/19/18 09:16 IMPRESSION: Fixation of a trimalleolar fracture in the OR. Electronically Signed: Juan Antonio Edwards DO at 16:14 EST Tel [phone], Service support , Ankle X-Ray 09/19/18 18:20 IMPRESSION: Status post internal fixation of a trimalleolar fracture. Electronically Signed: Juan Antonio Edwards DO at 19:14 EST Tel [phone], Service support , Back to [facility] podiatry medicine. Operations: - - Open reduction and internal fixation of left ankle fracture. Procedures: None Summary of Care Provided: Patient seen and examined on the day of discharge and appeared to be stable to be discharged home. Her left foot pain is getting better, has been ambulating. She mentioned that she can go home today and she is okay with having OxyIR for pain control. Her vital signs are stable. The patient is a 33 year old F admitted for elective surgery for acute traumatic left trimalleolar ankle fracture due to mechanical fall that happened on September 06, 2018. She underwent open reduction and internal fixation. After surgery, she had intractable pain and she was admitted for pain control. She was treated with IV pain medications as well as OxyIR. On the first day, her pain was not well controlled and she was started on oral Dilaudid. Her routine blood work was remarkable for mild chronic anemia and mild hypokalemia, potassium was replaced and corrected. After she received oral Dilaudid, her pain improved and she was able to ambulate. Patient discharged home in a stable medical condition, discharged on OxyIR as needed for pain, recommended follow-up with PCP in 2-4 weeks, follow-up with her surgeon next week. - Physical Exam General: Alert, Oriented x3, Cooperative, No apparent distress HEENT: Atraumatic, PERRLA, EOMI, Normocephalic Oral: Moist Mucosa, No Gingival or Mucosal Lesions/ Ulcerations Neck: Supple, No JVD, Negative Carotid Bruits, Trachea Midline, Thyroid Normal Size and Texture Lungs: Clear to auscultation, Normal air movement, No rhonchi, No wheeze, No rales Cardiovascular: Regular rate, Regular Rhythm, Normal S1, Normal S2, PMI Normal Abdomen: Bowel Sounds Present, Soft, Non Tender, Non-Distended, No Hepato-splenomegaly Extremities: No clubbing, No cyanosis, No edema Skin: No rashes, No breakdown Lymphatic: No Cervical, Supraclavicular, or Inguinal Adenopathy Neurological: Cranial nerves II-XII grossly intact, Neuro grossly intact Psych/Mental Status: Normal Affect, Appropriate Vital Signs Temp Pulse Resp BP Pulse Ox 98 F 86 20 H 126/70 H 99 09/21/18 10:32 09/21/18 10:32 09/21/18 10:32 09/21/18 10:32 09/21/18 10:32 Oxygen Delivery Method Room Air Weight: 159 lb 13.362 oz Body Mass Index (BMI) 28.3 Intake and Output for Last 24 Hours 09/19/18 09/20/18 09/21/18 23:59 23:59 23:59 Intake Total 2800 / 2800 2423 / 2423 1950 / 1950 Output Total 600 / 600 1850 / 1850 1675 / 1675 Balance 2200 / 2200 573 / 573 275 / 275 Laboratory Tests Past 24 Hrs 09/20/18 18:39 Vit D 1,25-Dihydroxy Pending Discharge Activity: May Not Drive, May not drive while taking narcotic pain medications., May Not Shower, Use Walker, Use Crutches Ice area for (Minutes): 20 - Apply behind left knee 20 minutes of each hour while awake Weight Bearing Status: Weight bearing as tolerated Keep extremity elevated above heart level: Operative Extremity Call your doctor if your incision/area has: Sudden Increased Bleeding Call your doctor if you observe: Fever of 101 or Higher, Inability to urinate, Shortness of breath, Dizziness, Chest pain, Increased palpitations (irregular heartbeat), Calf discomfort, Uncontrolled pain Cleanse incision/area with: Keep Dressing Clean & Dry Home Medications: Medications to take at Discharge Acetaminophen [Tylenol] 500 - 1,000 mg PO Q6H PRN PRN 09/13/18 Oxycodone [Oxyir] 5 mg PO Q6H PRN PRN 7 Days #30 tab 09/19/18 Following Prescrptions Were Given to Patient: Oxycodone [Oxyir] 5 mg PO Q6H PRN PRN 7 Days #30 tab PRN Reason: Pain Primary Care Physician: Afshin Samano MD [Primary Care Provider] - Please Follow Up With: Hina Soriano DPM - Please follow up at your previously scheduled post operative appointment next week. Disposition: Home Minutes spent on discharge:: 25 Patient Condition:: Stable Medical Necessity - Tobacco Use Smoking Status: Never smoker Meaningful Use Info Meaningful Use Diagnoses (Choose all that apply): None applicable Code Visit OBSV E&M: 89115 Observation care discharge
--- NOTE | 2018-09-21 12:39 | DS.PCM_ITS ---
Discharge Date and Diagnosis Date of Admission: 09/19/18 Date of Discharge: 09/21/18 - Primary Discharge Diagnosis #1 intractable left foot pain after left foot surgery. #2 acute traumatic left trimalleolar ankle fracture status post open reduction and internal fixation. Hospital Course and Treatment Imaging Results: Clinical Impression(s) from Imaging Studies Ankle X-Ray 09/19/18 09:16 IMPRESSION: Fixation of a trimalleolar fracture in the OR. Electronically Signed: Juan Antonio Edwards DO at 16:14 EST Tel [phone], Service support , Ankle X-Ray 09/19/18 18:20 IMPRESSION: Status post internal fixation of a trimalleolar fracture. Electronically Signed: Juan Antonio Edwards DO at 19:14 EST Tel [phone], Service support , Back to [facility] podiatry medicine. Operations: - - Open reduction and internal fixation of left ankle fracture. Procedures: None Summary of Care Provided: Patient seen and examined on the day of discharge and appeared to be stable to be discharged home. Her left foot pain is getting better, has been ambulating. She mentioned that she can go home today and she is okay with having OxyIR for pain control. Her vital signs are stable. The patient is a 33 year old F admitted for elective surgery for acute traumatic left trimalleolar ankle fracture due to mechanical fall that happened on September 06, 2018. She underwent open reduction and internal fixation. After surgery, she had intractable pain and she was admitted for pain control. She was treated with IV pain medications as well as OxyIR. On the first day, her pain was not well controlled and she was started on oral Dilaudid. Her routine blood work was remarkable for mild chronic anemia and mild hypokalemia, potassium was replaced and corrected. After she received oral Dilaudid, her pain improved and she was able to ambulate. Patient discharged home in a stable medical condition, discharged on OxyIR as needed for pain, recommended follow-up with PCP in 2-4 weeks, follow-up with her surgeon next week. - Physical Exam General: Alert, Oriented x3, Cooperative, No apparent distress HEENT: Atraumatic, PERRLA, EOMI, Normocephalic Oral: Moist Mucosa, No Gingival or Mucosal Lesions/ Ulcerations Neck: Supple, No JVD, Negative Carotid Bruits, Trachea Midline, Thyroid Normal Size and Texture Lungs: Clear to auscultation, Normal air movement, No rhonchi, No wheeze, No rales Cardiovascular: Regular rate, Regular Rhythm, Normal S1, Normal S2, PMI Normal Abdomen: Bowel Sounds Present, Soft, Non Tender, Non-Distended, No Hepato- splenomegaly Extremities: No clubbing, No cyanosis, No edema Skin: No rashes, No breakdown Lymphatic: No Cervical, Supraclavicular, or Inguinal Adenopathy Neurological: Cranial nerves II-XII grossly intact, Neuro grossly intact Psych/Mental Status: Normal Affect, Appropriate Vital Signs Temp Pulse Resp BP Pulse Ox 98 F 86 20 H 126/70 H 99 09/21/18 10:32 09/21/18 10:32 09/21/18 10:32 09/21/18 10:32 09/21/18 10:32 Oxygen Delivery Method Room Air Weight: 159 lb 13.362 oz Body Mass Index (BMI) 28.3 Intake and Output for Last 24 Hours 09/19/18 09/20/18 09/21/18 23:59 23:59 23:59 Intake Total 2800 / 2800 2423 / 2423 1950 / 1950 Output Total 600 / 600 1850 / 1850 1675 / 1675 Balance 2200 / 2200 573 / 573 275 / 275 Laboratory Tests Past 24 Hrs 09/20/18 18:39 Vit D 1,25-Dihydroxy Pending Discharge Activity: May Not Drive, May not drive while taking narcotic pain medications., May Not Shower, Use Walker, Use Crutches Ice area for (Minutes): 20 - Apply behind left knee 20 minutes of each hour while awake Weight Bearing Status: Weight bearing as tolerated Keep extremity elevated above heart level: Operative Extremity Call your doctor if your incision/area has: Sudden Increased Bleeding Call your doctor if you observe: Fever of 101 or Higher, Inability to urinate, Shortness of breath, Dizziness, Chest pain, Increased palpitations (irregular h eartbeat), Calf discomfort, Uncontrolled pain Cleanse incision/area with: Keep Dressing Clean & Dry Home Medications: Medications to take at Discharge Acetaminophen [Tylenol] 500 - 1,000 mg PO Q6H PRN PRN 09/13/18 Oxycodone [Oxyir] 5 mg PO Q6H PRN PRN 7 Days #30 tab 09/19/18 Following Prescrptions Were Given to Patient: Oxycodone [Oxyir] 5 mg PO Q6H PRN PRN 7 Days #30 tab PRN Reason: Pain Primary Care Physician: Afshin Samano MD [Primary Care Provider] - Please Follow Up With: Hina Soriano DPM - Please follow up at your previously scheduled post operative appointment next week. Disposition: Home Minutes spent on discharge:: 25 Patient Condition:: Stable Medical Necessity - Tobacco Use Smoking Status: Never smoker Meaningful Use Info Meaningful Use Diagnoses (Choose all that apply): None applicable Code Visit OBSV E&M: 11068 Observation care discharge
[2018-09-24 15:21] LABS: Vitamin D 1,25-Dihydroxy 30.5 pg/mL (19.9-79.3)
== END 2018-09-21 10:41 | disposition home or self-care (01) ==
LOC: SDC 20:19 → MS3 20:21
PROVIDERS: Anesthesiology; Admitting Provider Hospitalist; Family Provider Family Medicine; PCP Family Medicine; Referring Provider Podiatrist Foot & Ankle Surgery; Visit Provider Hospitalist
PROC: (CPT 27822; principal; 2018-09-19 08:15)
DX: S82.852A Displaced trimalleolar fracture of left lower leg, initial encounter for closed fracture (principal); S82.872A Displaced pilon fracture of left tibia, initial encounter for closed fracture; W00.0XXA Fall on same level due to ice and snow, initial encounter; Y93.9 Activity, unspecified; Y92.9 Unspecified place or not applicable
CPT/HCPCS: 27822; 64450; 36415; 73610; 76000; 80048; 81025; 82652; 85025; 96374; 96375; 96376; 97162; 97166; 99218; C1713; J7120; A4216; G0378; G0379; J2405

== ENCOUNTER → 2019-10-02 09:11 | Outpatient (CLI) | payer MEDICAID, SELFPAY ==
[2018-09-19 21:29] VITALS: BMI 28.3
[2019-10-02 10:28] LABS: Cholesterol 182 mg/dL (200); High Density Lipoprotein 63 mg/dL; Triglycerides 79 mg/dL; Very Low Density Lipoprotein 16 mg/dL (5-40)
== END ==
PROVIDERS: PCP Family Medicine; Referring Provider Family Medicine; Visit Provider Nurse Practitioner Family
DX: Z00.00 Encounter for general adult medical examination without abnormal findings (principal)
CPT/HCPCS: 36415; 80061

== ENCOUNTER → 2019-10-21 17:42 | Outpatient (CLI) | payer MEDICAID, SELFPAY ==
[2018-09-19 21:29] VITALS: BMI 28.3
--- NOTE | 2019-10-21 18:15 | MRI_ITS ---
STUDY: MRI LEFT ANKLE WITHOUT CONTRAST REASON FOR EXAM: Female, 34 years old. LEFT ankle pain, posterior tibial tendon tear and dysfunction s/p ORIF 1 year ago TECHNIQUE: Standardized fat and water weighted pulse sequences were obtained in all 3 orthogonal planes. COMPARISON: CT ankle 09/10/2018. FINDINGS: Quality: Adequate. The study is limited by artifact from orthopedic hardware. Patient is status post internal fixation of the distal tibia and fibula. Joint spaces are well-maintained. Evaluation of the tibiotalar joint is limited due to artifact. Allowing for artifact, marrow signal is normal. No fracture, bone contusion, or osteonecrosis. Normal subcutis adipose space. Flexor and extensor tendons are intact with no tendinosis or tear. Normal plantar fascia. No demonstrated acute ligamentous tear. MRI/Lower Ext Joint Only (Routine) IMPRESSION: 1. No demonstrated tendinosis or tear. No acute findings. 2. Postsurgical changes. Electronically Signed: Frances Martinez MD at 21:30 EDT Tel , Service support ,
== END ==
PROVIDERS: PCP Family Medicine; Referring Provider Podiatrist; Visit Provider Podiatrist
DX: S86.112A Strain of other muscle(s) and tendon(s) of posterior muscle group at lower leg level, left leg, initial encounter (principal); Z98.890 Other specified postprocedural states
CPT/HCPCS: 73721

== ENCOUNTER → 2020-05-19 16:58 | Outpatient (CLI) | payer MEDICAID, SELFPAY ==
[2018-09-19 21:29] VITALS: BMI 28.3
[2020-05-19 18:59] LABS: Thyroid Stim Hormone (TSH) 1.06 uIU/mL (0.358-3.74)
== END ==
PROVIDERS: PCP Family Medicine; Referring Provider Family Medicine; Visit Provider Family Medicine
DX: F41.0 Panic disorder [episodic paroxysmal anxiety] (principal)
CPT/HCPCS: 36415; 84443

== ENCOUNTER → 2021-02-28 09:39 | Outpatient (CLI) | payer BC, MEDICAID, SELFPAY ==
[2018-09-19 21:29] VITALS: BMI 28.3
--- NOTE | 2021-02-28 09:44 | RAD_ITS ---
STUDY: X-RAY - ABDOMEN/PELVIS REASON FOR EXAM: Female, 36 years old. Hematuria. TECHNIQUE: COMPARISON: None. FINDINGS: Normal visualized lung bases. There is an unremarkable bowel gas pattern. There is no demonstrated free abdominal air. 6 mm in diameter calcification projected between the left transverse processes of the L3 and L4 vertebral bodies. Normal soft tissue structures. Normal visualized osseous structures. RAD/Abd Inc Decub and/or Erect IMPRESSION: 6 mm in diameter calcification on the left which may reside in the ureter. Further evaluation with CT of the abdomen and pelvis to confirm this would be appropriate. Electronically Signed: Román Bunn MD at 13:08 EDT , Service support ,
== END ==
PROVIDERS: PCP Family Medicine; Referring Provider Family Medicine; Visit Provider Family Medicine
DX: R31.9 Hematuria, unspecified (principal)
CPT/HCPCS: 74019

== ENCOUNTER 2021-02-28 14:34 | Emergency (ER) | payer BC, MEDICAID, SELFPAY ==
[2018-09-19 21:29] VITALS: BMI 28.3
[2021-02-28 14:35] VITALS: BP 125/77; PULSE 63; RESP 16; TEMP 37.1; O2SAT 98; BMI 20.3
--- NOTE | 2021-02-28 14:58 | CT_ITS ---
HISTORY: flank pain EXAMINATION: CT Abdomen And Pelvis W/O Contrast Injection TECHNIQUE: Multiple axial images were obtained of the abdomen and pelvis without oral or IV contrast. A radiation dose optimization technique was used for this scan. IV Contrast dosage and agent: None. Oral contrast: None. COMPARISON: None FINDINGS: LOWER CHEST: Lung bases are clear. No cardiomegaly or pericardial effusion. LIVER: Homogeneous. No focal mass. GALLBLADDER AND BILIARY TREE: No calcified gallstones. No gallbladder distension or wall edema. No intra- or extrahepatic biliary ductal dilation. PANCREAS: No focal cystic or solid mass. SPLEEN: Normal size without focal cystic or solid mass. ADRENAL GLANDS: No nodules. KIDNEYS AND URETERS: New nephrolithiasis. Left hydronephrosis with 7 mm calculus at the left UPJ. PERITONEUM: No ascites or free air. BOWEL: Normal appendix. No stomach or bowel distension. No focal inflammatory bowel wall changes. LYMPH NODES: No enlarged mesenteric or retroperitoneal lymph nodes. VESSELS: Aorta is non-dilated. URINARY BLADDER: Unremarkable. REPRODUCTIVE ORGANS: No pelvic masses. ABDOMINAL WALL: Small fat-containing periumbilical hernia. BONES: No acute or aggressive abnormality. CT/Abdomen/Pelvis without Cont IMPRESSION: Partially obstructing 7 mm calculus at the left UPJ. Individualized dose optimization techniques were used for this CT. at 2074 Reported and signed by: Marcos Austin MD Electronically Signed: Marcos Austin MD at 16:12 EDT Tel , Service support ,
--- NOTE | 2021-02-28 14:58 | EX.ED.DYSGE1 ---
HPI History of Present Illness Chief Complaint: Flank Pain Narrative Narrative: Patient presents with left flank pain for the past month however she has had hematuria for the past 2 days. She received an outpatient x-ray and there is the possibility of kidney stone and was sent to the ED. She tells me the pain comes in waves it is mostly in the flank but now it is radiating to the left lower abdomen. No fever or chills she has hematuria but no dysuria. No fevers or chills. Pain is mild to moderate. PFSH PFS Medical History (Updated 02/28/21 @ 17:[address] Marvin Rebolledo MD) Environmental allergies Home Medications acetaminophen 500 - 1,000 mg PO Q6H PRN PRN 09/13/18 [History Last Taken Unknown] ketorolac 10 mg PO TID PRN 5 Days tab 02/28/21 [Rx Last Taken Unknown] oxycodone-acetaminophen [Percocet] 1 tab PO Q8H PRN 3 Days #10 tab 02/28/21 [Rx Last Taken Unknown] Allergy/AdvReac Type Severity Reaction Status Date / Time No Known Drug Allergies Allergy Other Verified 09/13/18 08:33 pecan nut Allergy Swelling Verified 02/28/21 14:34 walnut Allergy Swelling Verified 02/28/21 14:34 Family History Other Breast cancer Cancer Colon cancer Heart disease Hypertension Melanoma Severe allergic reaction Surgical History (Updated 09/23/18 @ 18:[address] Hina Soriano DPM) History of arthroplasty of right ankle Social History (Updated 11/13/17 @ 08:[address] Chyna Hester, [place]) Smoking Status: Never smoker alcohol intake: current alcohol intake frequency: 0-2 drinks per day substance use type: does not use what type of physical activity do you participate in: none ROS ROS ED ROS Narrative Past medical history: Reviewed Medications: Reviewed Social history: Noncontributory Review of systems: All systems negative except as indicated General: No fever Eyes: No visual changes ENT: No upper airway congestion, normal voice Neck: No neck pain Cardiovascular: No chest pain Respiratory: No shortness of breath or cough Gastrointestinal: Abdominal and flank pain as in HPI Genitourinary: Hematuria as in HPI Musculoskeletal: Denies myalgias no difficulty with ambulation Skin: No rash Neurological: No memory loss, confusion or any focal weakness Psych: No recent behavioral changes Hematologic: No easy bleeding or easy bruising EXAM Physical Exam Narrative Exam Narrative: Physical exam General: This time she does not appear uncomfortable she does not appear in significant distress Head: Normocephalic, Atraumatic Eyes: Conjunctiva not pale ENT: Slightly dry mucous membranes Neck: Supple, Nontender, No lymphadenopathy Cardiovascular: Regular rate, Regular rhythm Respiratory: No distress, CTA bilaterally Abdomen: Soft, mild left lower quadrant abdominal pain. No guarding or rebound. No suprapubic pain. Back: Nontender, Normal Inspection. Left-sided CVA tenderness to palpation Extremities: Nontender, No edema Skin: Normal color, No rash Neurological: Alert, Normal Strength, Normal Sensation Psychological: Normal affect Const Vital Signs: 02/28/21 14:35 Temperature 98.7 F Temperature Source Temporal Pulse Rate 63 Respiratory Rate 16 Blood Pressure 125/77 H Blood Pressure Mean 93 Pulse Ox 98 Oxygen Delivery Method Room Air [facility] Lab Data Labs: Laboratory Results - last 24 hr 02/28/21 02/28/21 02/28/21 15:30 15:35 15:35 WBC 9.2 RBC 4.58 Hgb 14.0 Hct 42.6 MCV 93.0 MCH 30.6 MCHC 32.9 RDW Std Deviation 45.0 H RDW Coeff of Kelechi 13.2 Plt Count 344 MPV 9.0 Immature Gran % (Auto) 0.200 Neut % (Auto) 64.1 Lymph % (Auto) 27.0 [place] % (Auto) 7.9 Eos % (Auto) 0.3 Baso % (Auto) 0.5 Absolute Neuts (auto) 5.9 Absolute Lymphs (auto) 2.49 Nucleated RBC % 0 Sodium 139 Potassium 2.9 L Chloride 107 Carbon Dioxide 26.0 Anion Gap 6 BUN 5 L Creatinine 0.90 Estim Creat Clear Calc 71.98 Est GFR (MDRD) Af Amer 90 Est GFR (MDRD) Non-Af 75 BUN/Creatinine Ratio 5.6 L Glucose 83 Calcium 9.3 Total Bilirubin 0.50 AST 15 ALT 21 Alkaline Phosphatase 46 Total Protein 8.5 H Albumin 4.5 Globulin 4.0 Albumin/Globulin Ratio 1.1 Urine Color Yellow Urine Clarity Sl. Cloudy Urine pH 7.0 Ur Specific [place]rie 1.005 Urine Protein 30 H Urine Glucose (UA) Normal Urine Ketones Negative Urine Occult Blood 250 H Urine Nitrite Negative Urine Bilirubin Negative Urine Urobilinogen Normal Ur Leukocyte Esterase 25 H Urine RBC 10-25 SEEN Urine WBC 0 SEEN Ur Squamous Epith Cells 0 SEEN Urine Bacteria 0 SEEN Urine Mucus 0 SEEN Radiography Diagnostic Testing: Radiology Impression Abdomen/Pelvis CT 02/28/21 14:58 IMPRESSION: Partially obstructing 7 mm calculus at the left UPJ. Individualized dose optimization techniques were used for this CT. at 1614 Reported and signed by: Marcos Austin MD Electronically Signed: Marcos Austin MD at 16:12 EDT Tel , Service support , Discharge Plan Triage Chief Complaint: Flank Pain ED Provider: Marvin Rebolledo Dx/Rx/DC Orders Clinical Impression: Kidney stone Instructions: ED Kidney Stone w/ Colic Prescriptions: New oxycodone-acetaminophen [Percocet] 5-325 mg tablet 1 tab PO Q8H PRN (Reason: pain) 3 Days Qty: 10 RF: 0 ketorolac 10 mg tablet 10 mg PO TID PRN (Reason: pain) 5 Days RF: 0 No Action acetaminophen 500 MG tablet 500 - 1,000 mg PO Q6H PRN PRN (Reason: Pain) RF: 0 Primary Care Provider: Afshin Samano Referrals: Marion Desai MD [STAFF PHYSICIAN] - 2 Days Afshin Samano MD [Primary Care Provider] - Disposition Disposition: Home, Self Care
--- NOTE | 2021-02-28 15:24 | EX.ED.DYSGE1 ---
HPI History of Present Illness Chief Complaint: Flank Pain Narrative Narrative: Patient presents with hematuria and left flank pain PFSH PFSH Medical History (Updated 09/23/18 @ 18:[address] Hina Soriano DPM) Environmental allergies Home Medications acetaminophen 500 - 1,000 mg PO Q6H PRN PRN 09/13/18 [History Last Taken Unknown] Allergy/AdvReac Type Severity Reaction Status Date / Time No Known Drug Allergies Allergy Other Verified 09/13/18 08:33 pecan nut Allergy Swelling Verified 02/28/21 14:34 walnut Allergy Swelling Verified 02/28/21 14:34 Family History Other Breast cancer Cancer Colon cancer Heart disease Hypertension Melanoma Severe allergic reaction Surgical History (Updated 09/23/18 @ 18:[address] Hina Soriano DPM) History of arthroplasty of right ankle Social History (Updated 11/13/17 @ 08:[address] Chyna Hester [place]) Smoking Status: Never smoker alcohol intake: current alcohol intake frequency: 0-2 drinks per day substance use type: does not use what type of physical activity do you participate in: none EXAM Physical Exam Const Vital Signs: 02/28/21 14:35 Temperature 98.7 F Temperature Source Temporal Pulse Rate 63 Respiratory Rate 16 Blood Pressure 125/77 H Blood Pressure Mean 93 Pulse Ox 98 Oxygen Delivery Method Room Air Discharge Plan Triage Chief Complaint: Flank Pain ED Provider: Marvin Rebolledo Dx/Rx/DC Orders Prescriptions: No Action acetaminophen 500 MG tablet 500 - 1,000 mg PO Q6H PRN PRN (Reason: Pain) RF: 0 Primary Care Provider: Afshin Samano
[2021-02-28] MEDS: Ketorolac 15 MG/ML Vial IV (15:34)
[2021-02-28 15:43] LABS: Bacteria 0 SEEN /hpf (None Seen); Mucous, Urine 0 SEEN /hpf (<or=2+); Squamous Epithelial Cells - UA 0 SEEN /hpf (5-10); White Blood Cells 0 SEEN /hpf (0-5)
[2021-02-28 15:49] LABS: Color, Urine Yellow (Yellow); Glucose, Dipstick Normal (Normal); Ketone-Dipstick Negative (Negative); Leukocyte Esterase-Dipstick 25 /ul (Negative); Nitrite-Dipstick Negative (Negative); Occult Blood-Urine 250 /ul (Negative); Protein-Dipstick 30 mg/dl (Negative); Specific Gravity, Urine 1.005 (1.002-1.030); Urine Bilirubin Dipstick Negative (Negative); Urine Clarity Sl. Cloudy (Clear); Urine Urobilinogen Normal (Normal)
[2021-02-28 15:50] LABS: Absolute Lymphocyte Count 2.49 X10^3/uL (0.83-4.51); Absolute Neutrophil Count 5.9 X10^3/uL (2.0-7.7); Basophil# 0.05 X10^3/uL; Basophil% 0.5 % (0-1); Eosinophil# 0.03 X10^3/uL; Eosinophils% 0.3 % (0-5); Hematocrit 42.6 % (37-47); Lymphocyte # 2.49 X10^3/ul (0.83-4.51); Mean Corp Hgb Conc 32.9 g/dL (32-36); Mean Corpuscular Hgb 30.6 pg (27.0-32.0); Monocyte# 0.73 X10^3/uL; Monocyte% 7.9 % (0-10); NRBC Flagged by Analyzer 0 % (0-5); Neutrophil % 64.1 % (47-70); Platelet Count 344 K/mm3 (150-450); RBC Distribution Width CV 13.2 % (11.6-14.6); Red Blood Count 4.58 M/mm3 (4.2-5.4); White Blood Count 9.2 K/mm3 (4.4-11.0)
[2021-02-28 15:59] LABS: Red Blood Cells-Urine 10-25 SEEN /hpf (0-5)
[2021-02-28 16:11] LABS: ALB/GLOB Ratio 1.1 RATIO (0.9-2.4); AST(SGOT) 15 U/L (15-37); Alanine Aminotransfer ALT/SGPT 21 U/L (13-56); Albumin, Serum 4.5 g/dL (3.2-5.0); Alkaline Phosphatase 46 U/L (45-117); Anion Gap 6 (5-15); BUN 5 mg/dL (7-18); BUN/Creat Ratio 5.6 RATIO (10-20); Calcium,Total 9.3 mg/dL (8.5-10.1); Chloride 107 mmol/L (98-107); EST Glomerular Filtration Rate 75 mL/min (>60); Est Glom Filt Rate - Afr Amer 90 mL/min (>60); Estimated Creatinine Clearance 71.98 ml/min; Glucose 83 mg/dL (74-106); Potassium 2.9 mmol/L (3.5-5.1); Protein, Total 8.5 g/dL (6.4-8.2); Sodium Level 139 mmol/L (136-145)
[2021-02-28] MEDS: Ceftriaxone 1 GM/50 ML BAG IV (17:33)
[2021-02-28 18:02] VITALS: BP 124/82; PULSE 61; RESP 14; O2SAT 100
== END 2021-02-28 18:03 | disposition home or self-care (01) ==
PROVIDERS: Emergency Provider Emergency Medicine; PCP Family Medicine
DX: N20.0 Calculus of kidney (principal)
CPT/HCPCS: 74176; 80053; 81001; 85025; 96365; 96375; 99283; J7050; A4216

== ENCOUNTER 2021-03-07 12:46 | Day surgery (SDC) | payer BC, MEDICAID, SELFPAY ==
--- NOTE | 2021-03-04 16:39 | NURSING ---
Pt notified via phone to increase intake of foods high in potassium from now through 02/[address] Farmer's orders.
[2021-03-07] VITALS (7 sets, daily range): BP systolic 96–122; BP diastolic 61–76; PULSE 44–69; RESP 16–18; TEMP 35.7–36.4; O2SAT 100; BMI 20.5
[2021-03-07 13:12] LABS: Internal QC Validated? YES +Cl - CLEAR BKGD; Pregnancy, Urine Negative Negative
[2021-03-07] MEDS: Lactated Ringers 1,000 ML 100 ML IV (13:29)
[2021-03-07 13:47] LABS: Potassium 4.1 mmol/L (3.5-5.1)
--- NOTE | 2021-03-07 13:49 | PCM.HP.STD ---
HPI - General HPI Narrative FRANCHESCA NG, is a 36 F who presents for definitive management of a left UPJ calculus with obstruction. She was seen in the emergency room for pain and was diagnosed via CT scan. She followed up with me in the office and continued to be uncomfortable. Due to the size and location of the stone with obstructive symptoms and presentation on CT scan, the decision was made to proceed with surgical intervention. Informed consent was obtained. [facility] Medical History (Updated 03/07/21 @ 13:[address] Marion Desai MD) Anxiety Arthritis Difficulty swallowing Environmental allergies Flank pain Heartburn Non-smoker Obstruction of left ureteropelvic junction (UPJ) due to stone Home Medications acetaminophen 500 - 1,000 mg PO Q6H PRN PRN 09/13/18 [History Last Taken Unknown] oxycodone-acetaminophen [Percocet] 1 tab PO Q8H PRN 3 Days #10 tab 02/28/21 [Rx Last Taken Unknown] multivitamin 1 tab PO DAILY 03/04/21 [History Last Taken Unknown] Allergy/AdvReac Type Severity Reaction Status Date / Time No Known Drug Allergies Allergy Other Verified 03/07/21 13:08 pecan nut Allergy Swelling Verified 03/07/21 13:08 walnut Allergy Swelling Verified 03/07/21 13:08 Family History Other Breast cancer Cancer Colon cancer Heart disease Hypertension Melanoma Severe allergic reaction Surgical History History of ankle surgery History of arthroplasty of right ankle History of D&C History of oral surgery History of wisdom tooth extraction Social History Smoking Status: Never smoker alcohol intake: current alcohol intake frequency: 0-2 drinks per day substance use type: does not use what type of physical activity do you participate in: none ROS Constitutional Constitutional: Denies body ache(s), chills, fatigue or fever(s) Eyes Eyes: Denies change in vision ENT HEENT: Reports systems reviewed and no addt'l complaints, except as documented Cardiovascular Cardiovascular: Denies chest pain, diaphoresis, dyspnea or lightheadedness Respiratory/Chest Respiratory/Chest: Denies chest congestion, chest tightness, cough, hoarseness or inability to speak Gastrointestinal Gastrointestinal: Reports abdominal pain and nausea; Denies fecal incontinence, melena or weight changes Genitourinary Genitourinary: Reports abdominal discomfort, flank pain and low back pain; Denies burning urination, difficulty urinating or hematuria Musculoskeletal Musculoskeletal: Denies abnormal gait or difficulty walking Integumentary Integumentary: Denies jaundice, lesions, new lesions or rash Neurologic Neurologic: Reports systems reviewed and no addt'l complaints, except as documented Psychiatric Psychiatric: Reports systems reviewed and no addt'l complaints, except as documented Hematologic/Lymphatic Hematologic/Lymphatic: Reports systems reviewed and no addt'l complaints, except as documented Allergic/Immunologic Allergic/Immunologic: Reports systems reviewed and no addt'l complaints, except as documented Vital Signs Vital Signs Vital Signs: 03/07/21 13:11 Temperature 97.0 F L Temperature Source Temporal Pulse Rate 69 Respiratory Rate 16 Respiratory Pattern Normal Blood Pressure 115/76 Blood Pressure Mean 89 Blood Pressure Source Monitor Blood Pressure Position Semi-Fowlers Blood Pressure Location Left Arm Pulse Ox 100 Oxygen Delivery Method Room Air Weight Weight: 54.2 kg Body Mass Index (BMI) 20.5 Physical Exam Const alert, oriented x3 and no apparent distress HEENT normocephalic, head/scalp atraumatic, external ears normal and external nose normal Eyes conjunctivae normal and no scleral icterus General Eye: normal appearance of both eyes Neck supple General: normal visual inspection and trachea midline Lymph Lymphatic: no lymphedema noted Chest inspection of chest normal Chest: symmetrical chest wall rise Resp normal respiratory effort, normal air movement, no retractions and no use of accessory muscles Cardio regular rate and regular rhythm GI soft to palpation, non-tender and non-distended external exam normal Back/Spine General Back: CVA tenderness left Extremity normal to inspection Skin no rashes or lesions noted, no wounds, skin turgor normal, no jaundice, no petechiae and no mottling Neuro oriented x3, CN's II-XII intact bilaterally and moves all extremities Psych mental status grossly normal, thought process normal, cooperative and affect normal Results Lab / Micro Data Result Diagrams: 03/07/21 13:30 Labs: Laboratory Results - last 24 hr 03/07/21 13:00: Urine Test Negative 03/07/21 13:30: Potassium 4.1 Assessment & Plan Assessment/Plan (1) Obstruction of left ureteropelvic junction (UPJ) due to stone: PLAN: cystoscopy with left ureteral stent insertion, left renal extracorporeal shockwave lithotripys informed consent obtained (2) Flank pain: (3) Kidney stone: Procedure Criteria Type of Procedure Procedure Type: Elective Elective Risks - COVID COVID Risk Discussion: The surgeon/proceduralist and patient have discussed in detail the risk of exposure to and/or potential harm posed by the COVID-19 virus with having a surgery/procedure at this time versus the risk of delaying the surgery/procedure. It is not possible to know either the risk of delaying the surgery or procedure or chance of getting an infection with perfect accuracy, but a joint decision was made between the patient and the surgeon/proceduralist to proceed at this time with the scheduled surgery/procedure as indicated on the consent form.
--- NOTE | 2021-03-07 13:56 | OP.PCM_ITS ---
Problems Associated Problem List Diagnoses (1) Flank pain: (2) Obstruction of left ureteropelvic junction (UPJ) due to stone: (3) Kidney stone: Report of Operation Date of Procedure: 03/07/21 Pre-Operative Diagnosis: Left ureteropelvic junction obstruction, left kidney stone, flank pain Post-Operative Diagnosis: Same Surgery/Procedure Performed:: Cystoscopy, left ureteral stent insertion, left renal extracorporal shockwave lithotripsy Surgeon: Marion Desai Type of Anesthesia: General Description of Procedure: The patient is a 36-year-old female who presented to the office after being seen in the emergency room and diagnosed with a partially obstructing 7 mm left UPJ calculus. Due to the size of the stone and her continued pain, the decision was made to proceed with surgical intervention. Informed consent was obtained. The patient was taken to the operating room and placed on the shockwave lithotripsy table. Anesthesia monitored the head, neck, airway, IV access and vital signs throughout the case. Once anesthesia was appropriate ministered the patient was placed into dorsal lithotomy position was prepped and draped in usual sterile fashion. At this time the cystoscope was inserted through the urethra under direct visualization. The bladder mucosa was visualized in its entirety and found to be without evidence of mass, erythema, ulceration or foreign body. The left ureteral orifice was intubated with a 0.035 Glidewire. Using fluoroscopy, a 6 Armenian 24 cm JJ stent was inserted over the wire with good curling in the renal pelvis as well as the urinary bladder. The patient's bladder was then emptied and the patient was repositioned for the shockwave lithotripsy portion of the procedure. The stone was easily visualized. 3000 shocks were applied to the stone and it appeared to be well fragmented at the conclusion of the case. The patient was then awakened and taken to the recovery room in good condition. There were no complications during this procedure. Grafts/Implants Used: 6x24 JJ stent Complications none Admit VTE Documentation VTE Present on Admission: Yes VTE Mechan Device Prophylaxis: SCD's VTE Pharm Prophylaxis ordered?: No Reason prophylaxis not ordered:: Treatment Not Indicated
--- NOTE | 2021-03-07 13:59 | PCM.DC ---
Discharge Instructions Diet Discharge Diet: No restrictions Activity Discharge Activity: Return to Normal Activity May resume sexual activity in: No Restrictions Dressing / Incision Call your doctor if you observe: Fever of 101 or Higher, Inability to urinate, Inability to have a bowel movement, Calf discomfort and Uncontrolled pain Follow Up Care Please Follow Up With: Marion Desai MD When: in 2 weeks for stent removal, call office for appt Test Results: Test results from this visit will be discussed in further detail at your follow-up appointment, if applicable. Discharge Plan Admission Attending Provider: Marion Desai Primary Care Provider: Afshin Samano Discharge Orders/Prescriptions Prescriptions: New fluconazole [Diflucan] 150 MG tablet 150 mg PO DAILY 2 Days Qty: 2 RF: 0 oxycodone-acetaminophen [oxycodone-acetaminophen] 1 TABLET tablet 2 tab PO Q8H PRN PRN (Reason: Pain) 7 Days Qty: 20 RF: 0 cephalexin [cephalexin] 500 MG capsule 500 mg PO Q12 3 Days Qty: 6 RF: 0 phenazopyridine [Pyridium] 200 MG tablet 200 mg PO TID PRN PRN (Reason: Bladder Spasms) 7 Days Qty: 30 RF: 0 Continued acetaminophen 500 MG tablet 500 - 1,000 mg PO Q6H PRN PRN (Reason: Pain) RF: 0 oxycodone-acetaminophen [Percocet] 5-325 mg tablet 1 tab PO Q8H PRN (Reason: pain) 3 Days Qty: 10 RF: 0 multivitamin Tablet 1 tab PO DAILY RF: 0 Referrals / Follow Up: Afshin Samano MD [Primary Care Provider] - Disposition Disposition (needs filled in before D/C Order can be placed): Home, Self Care
[2021-03-07] MEDS: Cefazolin 2 GM in 0.9% Normal Saline 100 ML IV (14:16)
== END 2021-03-07 18:04 | disposition home or self-care (01) ==
LOC: SDC 12:47 → AC 12:49
PROVIDERS: Anesthesiology; PCP Family Medicine; Referring Provider Urology; Visit Provider Urology
PROC: (CPT 50590; principal; 2021-03-07 14:10)
DX: N20.1 Calculus of ureter (principal); M19.90 Unspecified osteoarthritis, unspecified site; R13.10 Dysphagia, unspecified
CPT/HCPCS: 00873; 50590; 52332; 81025; 84132; J7120; C2617; J2405

== ENCOUNTER → 2021-03-22 15:04 | Outpatient (CLI) | payer BC, MEDICAID, SELFPAY ==
[2021-03-07 13:11] VITALS: BMI 20.5
--- NOTE | 2021-03-22 15:06 | RAD_ITS ---
STUDY: X-RAY - ABDOMEN/PELVIS REASON FOR EXAM: Female, 36 years old. KUB- KIDNEY STONES TECHNIQUE: Single AP view of the abdomen / pelvis. COMPARISON: 11/09/2020 FINDINGS: Interval placement of left ureteral stent. No obvious ureteral stone. There is an unremarkable bowel gas pattern. The visualized liver, spleen and kidneys are grossly normal in size and morphology. Normal soft tissue structures. Normal visualized osseous structures. RAD/Abdomen Single View IMPRESSION: Interval placement of left ureteral stent. No obvious ureteral stone. Electronically Signed: Karlo Banegas MD at 17:19 EDT Tel , Service support ,
== END ==
PROVIDERS: PCP Family Medicine; Referring Provider Urology; Visit Provider Urology
DX: N20.0 Calculus of kidney (principal)
CPT/HCPCS: 74018

== ENCOUNTER → 2022-08-21 | Outpatient (CLI) | payer MEDICAID, SELFPAY ==
[2022-08-21 17:47] LABS: Hematocrit 41.5 % (37-47); Hemoglobin 13.8 g/dL (12.0-15.0)
[2022-08-21 18:33] LABS: ALB/GLOB Ratio 1.2 RATIO (0.9-2.4); AST(SGOT) 14 U/L (15-37); Alanine Aminotransfer ALT/SGPT 22 U/L (13-56); Albumin, Serum 4.2 g/dL (3.2-5.0); Alkaline Phosphatase 46 U/L (45-117); Anion Gap 12 (5-15); BUN 8 mg/dL (7-18); BUN/Creat Ratio 10.3 RATIO (10-20); Calcium,Total 9.3 mg/dL (8.5-10.1); Chloride 102 mmol/L (98-107); Creatinine, Serum 0.77 mg/dL (0.55-1.02); EST Glomerular Filtration Rate 88 mL/min (>60); Est Glom Filt Rate - Afr Amer 107 mL/min (>60); Globulin 3.6 g/dL (2.2-4.2); Glucose 81 mg/dL (74-106); Magnesium 2.2 mg/dL (1.6-2.6); Potassium 4.1 mmol/L (3.5-5.1); Protein, Total 7.8 g/dL (6.4-8.2); Sodium Level 137 mmol/L (136-145); Thyroid Stim Hormone (TSH) 0.89 uIU/mL (0.358-3.74)
== END | disposition home or self-care (01) ==
LOC: MFPLAB 15:10
PROVIDERS: PCP Family Medicine; Visit Provider Family Medicine
DX: R00.2 Palpitations (principal)
CPT/HCPCS: 36415; 80053; 83735; 84443; 85014; 85018

== ENCOUNTER → 2022-09-22 | Outpatient (CLI) | payer OTHER, MEDICAID, SELFPAY ==
--- NOTE | 2022-09-22 18:30 | US_ITS ---
INDICATION: LT FLANK PAIN EXAMINATION: Ultrasound US Kidney(s) complete (eg, kidneys and bladder) TECHNIQUE: Chirinos scale and color doppler images were obtained of the kidneys. COMPARISON: CT dated February 28, 2021 FINDINGS: RIGHT KIDNEY: The right kidney measures 10.2 cm in length. There is no hydronephrosis. No shadowing calculus, focal lesion or perinephric collection is demonstrated. LEFT KIDNEY: The left kidney measures 11.5 cm in length.. There is no hydronephrosis. No shadowing calculus, focal lesion or perinephric collection is demonstrated. URINARY BLADDER: No acute abnormality. US/Kidney and Bladder IMPRESSION: Within normal limits renal ultrasound. Electronically Signed: Emily Moreira MD at 8:21 EST ,
== END | disposition home or self-care (01) ==
LOC: US 18:28
PROVIDERS: PCP Family Medicine; Visit Provider Urology
DX: R10.9 Unspecified abdominal pain (principal); Z87.442 Personal history of urinary calculi
CPT/HCPCS: 76770

== ENCOUNTER 2024-04-24 08:51 | Day surgery (SDC) | payer OTHER, SELFPAY ==
--- NOTE | 2024-04-24 | EMB_PTH ---
PATIENT: FRANCHESCA NG [place] [facility] [id number] AGE/SX: 39/F ROOM: RE04/24/[address]: Dr. Crystal Maza, : 1985 BED: DIS: 04/24/2024 SPEC #: [id number] RECD: 04/24/24 13:43 STATUS: ILSA RESebastian #: [id number] JANEEN: 04/24/24 00:[address]: Crystal Maza DEPT: SURGICAL PATHOLOGY RECD BY: Nathanael Osorio ENTERED: 04/24/24 13:43 SP TYPE: ENDOM BX/C ASHLEE DR: No Primary Care Phys Tissues: Endometrium, NOS Procedures: Surgery Specimen Level IV HEADER OPERATION: Hysteroscopy, D&C, polypectomy PRE-OP DIAGNOSIS: Endometrial polyp, irregular bleeding TISSUE SUBMITTED: Endometrial curettings MICROSCOPIC DIAGNOSIS Endometrium, currettings: Secretory endometrium with focal stromal breakdown. AM.mr 04/25/2024 MICROSCOPIC DESCRIPTION Slides are reviewed. GROSS DESCRIPTION Received in fixative is one container labeled with the patient's name and designated Endometrial curettings. The specimen consists of multiple irregular fragments of leung hemorrhagic soft tissue that in aggregate measure 5.0 x 3.0 x 0.2 cm. The specimen is totally submitted in one cassette. 04/24/2024 TC:5 CPT:11772
--- NOTE | 2024-04-24 09:19 | PRE.ANES_ITS ---
ASA Classification* ASA Classification ASA Classification: 2 Assessment & Plan Anesthesia* Anesthesia Assessment Anesthesia Assessment: Discussed sedation and/or anesthesia options, risks, benefits, and alternatives with patient/parents/legal guardian/POA. Questions invited. The patient/parents/legal guardian/POA seems to understand and agrees to proceed with anesthesia plan. Reviewed the physical assessment, medical history, allergy history and patient home medications list prior to surgery/procedure/anesthetic and documented any changes. Performed airway and anesthesia risk assessments. Anesthesia Type Anesthesia Type: MAC (see written pre anesthesia record for full assessment) Anesthesia Focused Assessment* Airway Assessment Mouth opens: >3 cm Mallampati Score: II Focused Labs Anesthesia Preop lab: CBC WBC 9.2 K/mm3 (4.4-11.0) 02/28/21 15:35 RBC 4.58 M/mm3 (4.2-5.4) 02/28/21 15:35 Hgb 13.8 g/dL (12.0-15.0) 08/21/22 15:11 Hct 41.5 % (37-47) 08/21/22 15:11 Plt Count 344 K/mm3 (150-450) 02/28/21 15:35 CHEMISTRY Potassium 4.1 mmol/L (3.5-5.1) 08/21/22 15:11 Sodium 137 mmol/L (136-145) 08/21/22 15:11 Magnesium 2.2 mg/dL (1.6-2.6) 08/21/22 15:11 BUN 8 mg/dL (7-18) 08/21/22 15:11 Creatinine 0.77 mg/dL (0.55-1.02) 08/21/22 15:11 Glucose 81 mg/dL (74-106) 08/21/22 15:11 TSH 0.89 uIU/mL (0.358-3.74) 08/21/22 15:11 COAG Urine Test Negative Negative 03/07/21 13:00 Pre-Assessment Diagnosis/Proposed Procedure Planned Operative Procedure(s): Hysteroscopy,D&C, polypectomy Symphion, IUD insertion Anesthesia History Anesthesia History - contracting specialist: Anesthesia History - contracting specialist Hx Hospitalization No 04/14/24 10:19 Any Problems With Anesthesia Yes: PONV, DIZZY POST-OP 04/14/24 10:19 Cholinesterase deficiency No 04/14/24 10:19 You/Your Family Experience No 04/14/24 10:19 fever (hyperthermia) with Relationship Recent Exposure to Contagious No 03/07/21 13:11 Disease Does patient have nerve No 04/14/24 10:19 stimulator Patient instructed to have device shut off --Does patient have Pacemaker or ICD? When Was Last Pacemaker Check QUESTION #4 FULL TEXT: You/Your Family Experience fever (hyperthermia) with Anesthesia Last Oral Intake Last Oral intake: Last Oral Intake NPO since Meds taken in AM with sips of water? Meds patient instructed to take am of surgery PONV PONV - contracting specialist: PONV - contracting specialist Female Yes 04/14/24 10:19 HX of Motion Sickness Yes 04/14/24 10:19 HX of N/V After Surgery Yes 04/14/24 10:19 Non-Smoker Yes 04/14/24 10:19 Duration of Surgery greater Yes 04/14/24 10:19 than 60 minutes Number of Risk Factors 5 04/14/24 10:19 PONV Score Severe Risk 04/14/24 10:19 Height & Weight Height & Weight: Anesthesia: Height & Weight Height 5 ft 4 in 03/07/21 13:11 Respiratory Assessment Respiratory Assessment - contracting specialist: Respiratory Tract Infection Hx - contracting specialist Hx Respiratory Tract Infection No 04/14/24 10:19 STOP Sleep Apnea STOP Sleep Apnea - contracting specialist: STOP Sleep Apnea - contracting specialist Hx Hypertension No 04/14/24 10:19 Hx Sleep Apnea No 04/14/24 10:19 CPAP BIPAP Do you snore loudly (louder No 04/14/24 10:19 than talking or can be heard Do you often feel tired/ No 04/14/24 10:19 fatigued/ sleepy during daytime? Has anyone observed you stop No 04/14/24 10:19 breathing during sleep? STOP Results Negative 04/14/24 10:19 QUESTION #5 FULL TEXT : Do you snore loudly (louder than talking or can be heard through closed doors)? Tobacco Use History Tobacco Use History - contracting specialist: Tobacco Use History - contracting specialist Tobacco Use Smoking Status Never smoker 04/14/24 10:19 Hx Tobacco Use No 04/14/24 10:19 Years Smoking Packs Smoked per Day Smoking Cessation Date was within the last 15 years Hx Smoking Cessation Date Hx Smoking Cessation Counseling Hematologic Medial History Hematologic Hx - contracting specialist: Hematologic Medical Hx - electronic device monitor Hx of Blood Transfusion No 04/14/24 10:19 Hx of Transfusion in last 3 No 04/14/24 10:19 Months Date of Last Transfusion (if within last 3 months) Ever experience any problems No 04/14/24 10:19 with transfusion(s)? Specify any problems Hx of Preganancy in last 3 No 04/14/24 10:19 Months Nurse Filling Out Transfusion VCHRISTIN 04/14/24 10:19 & Questions: Date: 04/14/24 04/14/24 10:19 Time: 10:21 04/14/24 10:19 Patient unable to answer at this time (ie. confused, unrespo /Reproduction History /Reproductive History - contracting specialist: /Reproductive Hx- contracting specialist Hx Now No 04/14/24 10:19 Gestational Age (in weeks): EDC: Hx Hx Para Hx Section SAB No 04/14/24 10:19 Active Medications Active Medications: Current Medications Generic Name Dose Route Start Last Admin Trade Name Freq PRN Reason Stop Dose Admin Lactated Ringer's 1,000 mls @ 15 mls/hr 04/24/24 09:15 IV .Q48H LIEN Levonorgestrel 1 each 04/24/24 11:50 Levonorgestrel Iud (Liletta) INTRA-UTER 04/24/24 11:51 X1 ONE PFSH Medical History Wears contact lenses Wears glasses Flank pain Obstruction of left ureteropelvic junction (UPJ) due to stone Anxiety Arthritis Difficulty swallowing Heartburn Non-smoker Environmental allergies Home Medications ?Medication ?Instructions ?Recorded ?Last Taken ?Type acetaminophen 500 mg tablet 500 - 1,000 mg PO Q6H PRN PRN Pain 09/13/18 Unknown History multivitamin 1 tab PO DAILY 03/04/21 Unknown History Allergy/AdvReac Type Severity Reaction Status Date / Time No Known Drug Allergies Allergy Other Verified 04/14/24 10:13 pecan nut Allergy Swelling Verified 04/14/24 10:13 walnut Allergy Swelling Verified 04/14/24 10:13 Family History Other Breast cancer Cancer Colon cancer Heart disease Hypertension Melanoma Severe allergic reaction Surgical History Hx of cervical polypectomy Hx of cystoscopy History of D&C History of oral surgery History of wisdom tooth extraction History of ankle surgery History of arthroplasty of right ankle Social History Smoking Status: Never smoker alcohol intake: current alcohol intake frequency: 0-2 drinks per day substance use type: does not use what type of physical activity do you participate in: none Review of Systems (Anesthesia) ROS Narrative System reviewed and no additional complaints, except as documented.
[2024-04-24 09:23] LABS: Internal QC Validated? YES +Cl - CLEAR BKGD; Pregnancy, Urine Negative Negative
[2024-04-24 09:37] VITALS: BP 117/75; PULSE 65; RESP 18; TEMP 36.7; O2SAT 100; BMI 27.3
[2024-04-24] MEDS: Lactated Ringers 1,000 ML 15 ML IV (09:45)
[2024-04-24 09:47] LABS: Hemoglobin 10.5 g/dL (12.0-15.0); Mean Corp Hgb Conc 31.8 g/dL (32-36); Mean Corpuscular Hgb 27.1 pg (27.0-32.0); Mean Corpuscular Volume 85.1 fL (81-99); Platelet Count 389 K/mm3 (150-450); RBC Distribution Width CV 15.3 % (11.6-14.6); RBC Distribution Width SD 47.8 fl (35.1-43.9); Red Blood Count 3.88 M/mm3 (4.2-5.4); White Blood Count 5.9 K/mm3 (4.4-11.0)
[2024-04-24] MEDS: Lidocaine 1% /Epi 1:100 (20ml) 20 ML Vial (10:30)
--- NOTE | 2024-04-24 10:44 | PCM.DC ---
Discharge Instructions Diet Discharge Diet: No restrictions Activity Discharge Activity: May Drive (once you are more than 24 hours out from surgery) and May Shower (once you are more than 24 hours out from surgery) May resume sexual activity in: 1-2 weeks (nothing in the vagina and no soaking in water for 1 week) Weight Bearing Status: Weight bearing as tolerated Lifting Restrictions: none Additional Activity Instructions:: You can have spotting/irregular bleeding, and off and on minor cramping for 2-3 months with the IUD Dressing / Incision Call your doctor if you observe: Fever of 101 or Higher, Coldness, Increased Pain, Numbness or Tingling, Change in Color, Inability to urinate, Inability to have a bowel movement, Using more than 1 pad per hour, Shortness of breath, Dizziness, Fainting spells, Swelling in the ankles, Chest pain, Prolonged hiccupping, Increased palpitations (irregular heartbeat), Calf discomfort and Uncontrolled pain Follow Up Care Please Follow Up With: Crystal Maza DO When: 1-2 weeks for a post operative appointment Test Results: Test results from this visit will be discussed in further detail at your follow-up appointment, if applicable. Discharge Plan Admission Primary Reason for Your Visit: surgery Attending Provider: Crystal Maza Primary Care Provider: Care Physician,No Primary Instructions Print Language: Monegasque Discharge Orders/Prescriptions Prescriptions: Continued acetaminophen 500 MG tablet 500 - 1,000 mg PO Q6H PRN PRN (Reason: Pain) multivitamin Tablet 1 tab PO DAILY Disposition Disposition (needs filled in before D/C Order can be placed): Home, Self Care
[2024-04-24 10:57] VITALS: BP 96/51; PULSE 64; RESP 16; TEMP 36.1; O2SAT 96
--- NOTE | 2024-04-24 10:57 | PCM.POST.ANE ---
Anesthesia: Postop Eval I Current Vital Signs Temperature: 97 F Pulse Rate: 64 Blood Pressure: 96/51 Respiratory Rate: 16 Pulse Ox: 96 Oxygen Delivery Method: Room Air Assessment Airway patent: Yes Spontaneous unlabored respirations: Yes Mental status: Awake and Calm nausea: No Vomiting: No Anesthesia Complication: No Fluid Hydration Crystalloid volume administer (ml): 900 Total IV fluid infused: 900 Progress Note Anesthesia document: Postop Eval 1 completed: Yes
--- NOTE | 2024-04-24 10:58 | POSTOPAN2_ITS ---
Anesthesia Postop Eval I Sum Postop Eval Completion status Anesthesia document: Postop Eval 1 completed: Yes Anesthesia Postop Eval I Summary Anesthesia Postop Eval I Summary: Anesthesia Postop Eval I: Assessment Summary Airway patent Yes 04/24/24 10:57 FUR [email or web address] Spontaneous unlabored Yes 04/24/24 10:57 FUR TANNER.MDOT respirations Mental status Awake,Calm 04/24/24 10:57 FUR TANNER.MDOT nausea No 04/24/24 10:57 FUR TANNER.MDOT Vomiting No 04/24/24 10:57 FUR TANNER.MDOT Anesthesia Postop Eval I: Fluid Summary Crystalloid volume administer 900 04/24/24 10:57 FUR TANNER.MDOT (ml) Colloids volume administered ( ml) Blood Product volume administered (ml) Total IV fluid infused 900 04/24/24 10:57 FUR TANNER.OT Anesthesia Postop Eval I: Summary Notes Anesthesia Complication No 04/24/24 10:57 FUR TANNER.MDOT Anesthesia Complication Comment: Post-operative progress note Anesthesia: Postop Eval II Evaluation Mental status: Awake and Calm Pain Level: 0 nausea: No Vomiting: No Complications Anesthesia Complication: No
--- NOTE | 2024-04-24 10:58 | PCM.POSTANE2 ---
Anesthesia Postop Eval I Sum Postop Eval Completion status Anesthesia document: Postop Eval 1 completed: Yes Anesthesia Postop Eval I Summary Anesthesia Postop Eval I Summary: Anesthesia Postop Eval I: Assessment Summary Airway patent Yes 04/24/24 10:57 AIR POLLUTION SPECIALIST.MDOT Spontaneous unlabored Yes 04/24/24 10:57 AIR POLLUTION SPECIALIST.MDOT respirations Mental status Awake,Calm 04/24/24 10:57 AIR POLLUTION SPECIALIST.MDOT nausea No 04/24/24 10:57 AIR POLLUTION SPECIALIST.MDOT Vomiting No 04/24/24 10:57 AIR POLLUTION SPECIALIST.MDOT Anesthesia Postop Eval I: Fluid Summary Crystalloid volume administer 900 04/24/24 10:57 AIR POLLUTION SPECIALIST.MDOT (ml) Colloids volume administered ( ml) Blood Product volume administered (ml) Total IV fluid infused 900 04/24/24 10:57 AIR POLLUTION SPECIALIST.OT Anesthesia Postop Eval I: Summary Notes Anesthesia Complication No 04/24/24 10:57 AIR POLLUTION SPECIALIST.MDOT Anesthesia Complication Comment: Post-operative progress note Anesthesia: Postop Eval II Evaluation Mental status: Awake and Calm Pain Level: 0 nausea: No Vomiting: No Complications Anesthesia Complication: No
[2024-04-24] MEDS: Levonorgestrel IUD (Liletta) 1 EACH INTRA-UTER (11:01)
--- NOTE | 2024-04-24 11:13 | OP.PCM_ITS ---
Problems Associated Problem List Diagnoses (1) DUB (dysfunctional uterine bleeding): Report of Operation Date of Procedure: 04/24/24 Pre-Operative Diagnosis: DUB, polyp on pelvic US Post-Operative Diagnosis: DUB, thickened endometrium Surgery/Procedure Performed:: Hysteroscopy, D&C, Liletta IUD insertion Description of Surgical Findings:: Good descent of uterus and cervix. Uterus sounded to 8 cm. Thickened appearing endometrium without an obvious polyp lesion. Surgeon: Crystal Maza cyber security systems engineer: None Type of Anesthesia: MAC Special Medications: None Specimen's removed: Endometrial curettings Drains: None Estimated Blood Loss (mL): < 20 Fluids Replaced: 250 cc fluid deficit Description of Procedure: Patient was taken to the operating room where MAC anesthesia was induced and found to be adequate. She was prepped and draped in the dorsal lithotomy position using yellowfin stirrups. A weighted speculum was placed in the vagina to expose the cervix. The anterior lip of the cervix was grasped with single- tooth tenaculum. 10 cc of local was injected circumferentially around the cervix. The cervix was serially dilated to accommodate the hysteroscope. The Symphion hysteroscope was advanced to the fundus of the uterus, and the uterine cavity was distended with normal saline. Bilateral tubal ostia were visualized. No obvious polypoid lesions were noted. The endometrium was thickened. A D&C was performed with the resection device using the Symphion hysteroscope. The cavity was then reinspected and again no polypoid lesions noted. The hysteroscope was slowly removed and no endocervical lesions were noted. Once the hysteroscope was removed, a sharp curettage was performed for moderate amount of tissue. The endometrial curettings were sent to pathology for review. Uterus was sounded 8 cm. The Liletta IUD was inserted at the fundus of the uterus in usual sterile fashion and the strings trimmed to 2 cm in length. Bleeding was hemostatic. All instruments removed from the vagina. A vaginal sweep was performed. The patient was taken to the recovery room in stable condition. Grafts/Implants Used: None Procedure Start Time: 10:59 Procedure Stop Time: 11:10 Complications None Admit VTE Documentation VTE Present on Admission: No VTE Mechan Device Prophylaxis: SCD's
[2024-04-24 11:20] VITALS: BP 108/68; BP 117/75; PULSE 74; RESP 16; TEMP 36.3; O2SAT 98
[2024-04-24 11:25] VITALS: BP 107/73; BP 117/75; PULSE 74; RESP 16; O2SAT 100
[2024-04-24 11:30] VITALS: BP 108/72; BP 117/75; PULSE 70; RESP 16; TEMP 36.1; O2SAT 98
--- NOTE | 2024-04-24 11:35 | POSTOPAN2_ITS ---
Anesthesia Postop Eval I Sum Postop Eval Completion status Anesthesia document: Postop Eval 1 completed: Yes Anesthesia Postop Eval I Summary Anesthesia Postop Eval I Summary: Anesthesia Postop Eval I: Assessment Summary Airway patent Yes 04/24/24 10:57 [email or web address] Spontaneous unlabored Yes 04/24/24 10:57 [email or web address] respirations Mental status Awake,Calm 04/24/24 10:58 [email or web address] nausea No 04/24/24 10:58 [email or web address] Vomiting No 04/24/24 10:58 [email or web address] Anesthesia Postop Eval I: Fluid Summary Crystalloid volume administer 900 04/24/24 10:57 PULP [email or web address] (ml) Colloids volume administered ( ml) Blood Product volume administered (ml) Total IV fluid infused 900 04/24/24 10:57 [email or web address] Anesthesia Postop Eval I: Summary Notes Anesthesia Complication No 04/24/24 10:58 [email or web address] Anesthesia Complication Comment: Post-operative progress note Anesthesia: Postop Eval II Evaluation Mental status: Awake and Calm Pain Level: 2 nausea: No Vomiting: No Complications Anesthesia Complication: No
--- NOTE | 2024-04-24 11:35 | PCM.POSTANE2 ---
Anesthesia Postop Eval I Sum Postop Eval Completion status Anesthesia document: Postop Eval 1 completed: Yes Anesthesia Postop Eval I Summary Anesthesia Postop Eval I Summary: Anesthesia Postop Eval I: Assessment Summary Airway patent Yes 04/24/24 10:57 [email or web address] Spontaneous unlabored Yes 04/24/24 10:57 ACID [email or web address].MDOT respirations Mental status Awake,Calm 04/24/24 10:58 ACID [email or web address].[email or web address] nausea No 04/24/24 10:58 ACID [email or web address].MDOT Vomiting No 04/24/24 10:58 ACID [email or web address] Anesthesia Postop Eval I: Fluid Summary Crystalloid volume administer 900 04/24/24 10:57 ACID [email or web address].MDOT (ml) Colloids volume administered ( ml) Blood Product volume administered (ml) Total IV fluid infused 900 04/24/24 10:57 ACID [email or web address] Anesthesia Postop Eval I: Summary Notes Anesthesia Complication No 04/24/24 10:58 ACID [email or web address] Anesthesia Complication Comment: Post-operative progress note Anesthesia: Postop Eval II Evaluation Mental status: Awake and Calm Pain Level: 2 nausea: No Vomiting: No Complications Anesthesia Complication: No
[2024-04-24 12:01] VITALS: BP 117/75
== END 2024-04-24 12:13 | disposition home or self-care (01) ==
LOC: SDC 08:53 → AC 08:55
PROVIDERS: Referring Provider Obstetrics & Gynecology; Visit Provider Obstetrics & Gynecology
PROC: 0UB98ZZ Excision of Uterus, Via Natural or Artificial Opening Endoscopic (ICD-10-PCS; CPT 58558; principal; 2024-04-24 10:20)
DX: N85.00 Endometrial hyperplasia, unspecified (principal); N93.8 Other specified abnormal uterine and vaginal bleeding; Z30.430 Encounter for insertion of intrauterine contraceptive device; Z87.891 Personal history of nicotine dependence
CPT/HCPCS: 58558; 58300; 00952; 81025; 85027; 86850; 86900; 86901; 88305; J7120; J2405

== ENCOUNTER → 2025-01-27 | Outpatient (CLI) | payer OTHER, SELFPAY ==
--- NOTE | 2025-01-27 14:48 | RAD_ITS ---
PROCEDURE: ABDOMEN SINGLE VIEW 01/27/2025 REASON FOR EXAM: LEFT SIDE FLANK PAIN TECHNIQUE: Two-view supine abdomen COMPARISON: Abdomen study of 03/22/2021 RAD/Abdomen Single View IMPRESSION: Although limited by overlying stool, no urinary tract calculus is identified An intrauterine device is present in the midline of the pelvis. The bowel-gas pattern is unremarkable. No mass or mass effect is seen. Reading Location: [place] [id number]
== END | disposition home or self-care (01) ==
LOC: MTRAD 14:48
PROVIDERS: PCP Family Medicine
DX: R10.9 Unspecified abdominal pain (principal)
CPT/HCPCS: 74018